=== PATIENT | male | born 1950 | race Caucasian/White ===

== ENCOUNTER 2018-12-07 16:58 | Observation (INO) | payer MEDICARE, OTHER ==
[2018-12-07] MEDS ORDERED: Albuterol/Ipratropium 3.0-0.5 MG/3 ML Neb Soln NEB ONE (17:13)
[2018-12-07] MEDS ORDERED: Sodium Chloride 0.9% 1,000 ML IV ONE (17:13)
--- NOTE | 2018-12-07 17:17 | EDM.PDOC ---
ED HPI GENERAL MEDICAL PROBLEM - General Chief Complaint: Respiratory Problem Stated Complaint: WEAKNESS Time Seen by Provider: 12/07/18 17:00 Source of Information: Reports: Patient History Limitations: Reports: No Limitations - History of Present Illness INITIAL COMMENTS - FREE TEXT/NARRATIVE: HISTORY AND PHYSICAL: History of present illness: Patient is a 68-year-old male who presents to the emergency room with complaints of weakness, shortness of breath and cough. He states for approximately 2 weeks he has had the symptoms that are progressively gotten worse. He has seen Dr. Joel at the [facility] earlier this week and placed on azithromycin. His [id number] who is at the bedside states that when she came over today he could "barely walk because he was so weak" and encouraged him to come be evaluated in the emergency room. He has had subjective fever and chills. Denies any headache, syncope or near syncope. Denies any chest pain, abdominal pain, nausea, vomiting, diarrhea or constipation. States he has been eating and drinking appropriately. No recent fall, trauma or head injury. Past medical history of hypertension, coronary artery disease and cardiac stents. Review of systems: As per history of present illness and below otherwise all systems reviewed and negative. Past medical history: As per history of present illness and as reviewed below otherwise noncontributory. Surgical history: As per history of present illness and as reviewed below otherwise noncontributory. Social history: See social history for further information Family history: As per history of present illness and as reviewed below otherwise noncontributory. Physical exam: General: Well-developed and well-nourished 68-year-old male. Alert and oriented. Nontoxic appearing and in no acute distress. HEENT: Atraumatic, normocephalic, pupils equal and reactive bilaterally, negative for conjunctival pallor or scleral icterus, mucous membranes moist, TMs normal bilaterally, throat clear, neck supple, nontender, trachea midline. No drooling or trismus noted. No meningeal signs. No hot potato voice noted. Lungs: Fine expiratory wheezing noted to the right anterior base, breath sounds equal bilaterally, chest nontender. Dry nonproductive cough noted. Heart: S1S2, regular rate and rhythm without overt murmur Abdomen: Soft, nondistended, nontender. Negative for masses or hepatosplenomegaly. Negative for costovertebral tenderness. Pelvis: Stable nontender. Genitourinary: Deferred. Rectal: Deferred. Skin: Intact, warm, dry. No lesions or rashes noted. Extremities: Atraumatic, negative for cords or calf pain. Neurovascular unremarkable. Neuro: Awake, alert, oriented. Cranial nerves II through XII unremarkable. Cerebellum unremarkable. Motor and sensory unremarkable throughout. Exam nonfocal. Notes: Nursing staff states he is uneasy on his feet when transferred from wheelchair to the bed. He has been on antibiotics for proximally 4-5 days. It does appear that he tested positive for influenza on 12/01/18. He is agreeable to repeat lab work. Patient appears to have a right lower lobe pneumonia. We'll give Rocephin while here. Blood cultures have already been drawn. Discussed admission, patient and family members are agreeable. Dr. Johnston was consulted on this case. He is agreeable to admitting this patient for observation. Dr Mays is here to evaluate patient. Diagnostics: CBC, CMP, troponin, EKG, chest x-ray, head CT, blood cultures Therapeutics: IV fluids, Duo Neb, Rocephin Impression: Right lower lobe pneumonia Weakness History of Influenza Plan: Observation admission to Med/Surg Definitive disposition and diagnosis as appropriate pending reevaluation and review of above. neck Pain Score (Numeric/FACES): 5 - Related Data Allergies Allergy/AdvReac Type Severity Reaction Status Date / Time bee sting Allergy Airway Uncoded 12/07/18 17:13 Tightness Home Meds: Home Meds Aspirin 1 tab PO DAILY 12/07/18 [History] Cholecalciferol (Vitamin D3) [Vitamin D3] 1 tab PO DAILY 12/07/18 [History] Cyanocobalamin (Vitamin B-12) [Cyanocobalamin] 100 mg PO DAILY 12/07/18 [History ] FLUoxetine [PROzac] 20 mg PO DAILY 12/07/18 [History] Meloxicam 15 mg PO DAILY 12/07/18 [History] Metoprolol Succinate [Toprol Xl] 15 mg PO DAILY 12/07/18 [History] Vitamin B Complex [B Complex] 1 tab PO DAILY 12/07/18 [History] buPROPion [Wellbutrin SR] 300 mg PO DAILY 12/07/18 [History] ED ROS GENERAL - Review of Systems Review Of Systems: ROS reveals no pertinent complaints other than HPI. ED EXAM, GENERAL - Physical Exam Exam: See Below (See dictation) Course - Vital Signs Last Recorded V/S: Last Vital Signs Temp 99.3 F 12/07/18 17:57 Pulse 62 12/07/18 17:57 Resp 18 12/07/18 17:57 BP 104/56 L 12/07/18 17:57 Pulse Ox 94 L 12/07/18 17:57 - Orders/Labs/Meds Orders: Active Orders 24 hr Category Date Time Status EKG Documentation Completion [RC] STAT Care 12/07/18 17:13 Active RT Aerosol Therapy [RC] ASDIRECTED Care 12/07/18 17:13 Active Chest 1V Frontal [CR] Stat Exams 12/07/18 17:13 Ordered CULTURE BLOOD [BC] Stat Lab 12/07/18 17:13 Ordered CULTURE BLOOD [BC] Stat Lab 12/07/18 17:51 Received INFLUENZA A+B AG SCREEN [RM] Stat Lab 12/07/18 18:24 Ordered Sodium Chloride 0.9% [Normal Saline] 1,000 ml Med 12/07/18 17:13 Active IV STAT cefTRIAXone [Rocephin in Dextrose,Iso-Osm 1 GM/50 ML] 1 Med 12/07/18 18:10 Active gm Premix Bag 1 bag IV ONETIME Blood Culture x2 Reflex Set [OM.PC] Stat Oth 12/07/18 17:13 Ordered Medication Orders Sodium Chloride (Normal Saline) 1,000 mls @ 125 mls/hr IV STAT ONE Stop: 12/08/18 01:12 Last Admin: 12/07/18 17:38 Dose: 125 mls/hr Ceftriaxone Sodium/Dextrose 1 (gm/ Premix) 50 mls @ 100 mls/hr IV ONETIME ONE Stop: 12/07/18 18:39 Labs: Laboratory Tests 12/07/18 12/07/18 12/07/18 Range/Units 16:14 17:29 17:29 WBC 12.99 H (4.0-11.0) K/uL RBC 4.83 (4.50-5.90) M/uL Hgb 14.3 (13.0-17.0) g/dL Hct 41.2 (38.0-50.0) % MCV 85.3 (80.0-98.0) fL MCH 29.6 (27.0-32.0) pg MCHC 34.7 (31.0-37.0) g/dL RDW Std Deviation 45.3 (28.0-62.0) fl RDW Coeff of Mery 15 (11.0-15.0) % Plt Count 299 (150-400) K/uL MPV 10.00 (7.40-12.00) fL Neut % (Auto) 63.7 (48.0-80.0) % Lymph % (Auto) 21.3 (16.0-40.0) % [place] % (Auto) 14.3 (0.0-15.0) % Eos % (Auto) 0.5 (0.0-7.0) % Baso % (Auto) 0.2 (0.0-1.5) % Neut # (Auto) 8.3 H (1.4-5.7) K/uL Lymph # (Auto) 2.8 H (0.6-2.4) K/uL [place] # (Auto) 1.9 H (0.0-0.8) K/uL Eos # (Auto) 0.1 (0.0-0.7) K/uL Baso # (Auto) 0.0 (0.0-0.1) K/uL Nucleated RBC % 0.0 /100WBC Nucleated RBCs # 0 K/uL Lactate 0.7 (0.20-2.00) mmol/L Sodium 138 (136-148) mmol/L Potassium 4.3 (3.5-5.1) mmol/L Chloride 101 (98-107) mmol/L Carbon Dioxide 24.9 (21.0-32.0) mmol/L BUN 19 H (7.0-18.0) mg/dL Creatinine 1.1 (0.8-1.3) mg/dL Est Cr Clr Drug Dosing 72.05 mL/min Estimated GFR (MDRD) > 60.0 ml/min Glucose 109 H (74-106) mg/dL Calcium 9.7 (8.5-10.1) mg/dL Total Bilirubin 1.3 H (0.2-1.0) mg/dL AST 21 (15-37) IU/L ALT 28 (14-63) IU/L Alkaline Phosphatase 110 (46-116) U/L Troponin I < 0.050 (0.000-0.056) ng/mL Total Protein 7.8 (6.4-8.2) g/dL Albumin 3.7 (3.4-5.0) g/dL Globulin 4.1 H (2.6-4.0) g/dL Albumin/Globulin Ratio 0.9 (0.9-1.6) Meds: Medications Generic Name Dose Route Start Last Admin Trade Name Freq PRN Reason Stop Dose Admin Sodium Chloride 1,000 mls @ 125 mls/hr 12/07/18 17:13 12/07/18 17:38 Normal Saline IV 12/08/18 01:12 125 mls/hr STAT ONE Administration Ceftriaxone Sodium/Dextrose 1 50 mls @ 100 mls/hr 12/07/18 18:10 gm/ Premix IV 12/07/18 18:39 ONETIME ONE Discontinued Medications Generic Name Dose Route Start Last Admin Trade Name Freq PRN Reason Stop Dose Admin Albuterol/Ipratropium 3 ml 12/07/18 17:13 12/07/18 17:39 Duoneb 3.0-0.5 Mg/3 Ml NEB 12/07/18 17:14 3 ml ONETIME ONE Administration Departure - Departure Time of Disposition: 18:40 Disposition: Refer to Observation Clinical Impression: History of influenza, Weakness Pneumonia Qualifiers: Pneumonia type: due to unspecified organism Laterality: right Lung location: lower lobe of lung Qualified Code(s): J18.1 - Lobar pneumonia, unspecified organism - Discharge Information Referrals: Luis F Joel MD [Primary Care Provider] - Forms: ED Department Discharge - My Orders Last 24 Hours: My Active Orders 12/07/18 17:13 EKG Documentation Completion [RC] STAT RT Aerosol Therapy [RC] ASDIRECTED Chest 1V Frontal [CR] Stat CULTURE BLOOD [BC] Stat Sodium Chloride 0.9% [Normal Saline] 1,000 ml IV STAT Blood Culture x2 Reflex Set [OM.PC] Stat 12/07/18 17:51 CULTURE BLOOD [BC] Stat 12/07/18 18:10 cefTRIAXone [Rocephin in Dextrose,Iso-Osm 1 GM/50 ML] 1 gm Premix Bag 1 bag IV ONETIME 12/07/18 18:24 INFLUENZA A+B AG SCREEN [RM] Stat - Assessment/Plan Last 24 Hours: My Active Orders 12/07/18 17:13 EKG Documentation Completion [RC] STAT RT Aerosol Therapy [RC] ASDIRECTED Chest 1V Frontal [CR] Stat CULTURE BLOOD [BC] Stat Sodium Chloride 0.9% [Normal Saline] 1,000 ml IV STAT Blood Culture x2 Reflex Set [OM.PC] Stat 12/07/18 17:51 CULTURE BLOOD [BC] Stat 12/07/18 18:10 cefTRIAXone [Rocephin in Dextrose,Iso-Osm 1 GM/50 ML] 1 gm Premix Bag 1 bag IV ONETIME 12/07/18 18:24 INFLUENZA A+B AG SCREEN [RM] Stat
[2018-12-07 17:55] LABS: CHLORIDE,CL 101 mmol/L (98-107); SODIUM,NA 138 mmol/L (136-148)
[2018-12-07] MEDS ORDERED: cefTRIAXone 1 GM in Premix Bag 1 BAG IV ONE (18:10)
--- NOTE | 2018-12-07 18:53 | CR ---
HISTORY: Shortness of breath. TECHNIQUE: One view of the chest. COMPARISON: 12/01/2018. FINDINGS: There is a right lower lobe infiltrate medially which may relate to pneumonia. Probable postinflammatory changes at the lung apices as before. There is no pneumothorax. No significant effusion. Cardiac size within normal limits. Pacer wire terminates in the right ventricular region as before. IMPRESSION: Right lower lobe infiltrate which may relate to pneumonia. Dictated by Chris Zaidi MD @ 12/07/2018 6:52:05 PM Dictated by: Chris Zaidi MD @ 12/07/2018 18:52:07 (Electronically Signed)
--- NOTE | 2018-12-07 18:54 | PCM.HP ---
H&P History of Present Illness - General Date of Service: 12/07/18 Admit Problem/Dx: Admission Diagnosis/Problem Admission Diagnosis/Problem Pneumonia - History of Present Illness Initial Comments - Free Text/Narative: The patient is a 68 year old male with past medical history of HTN, CAD, and Afib who presented to the ER with weakness, shortness of breath, and productive cough. He reports associated fever/chills, nausea/vomiting, and loss of appetite. He denies chest pain or abdominal pain. He was seen as an outpatient in Dr. Moura's office and diagnosed with influenza, he completed a course of Tamiflu. Then earlier this week returned still not feeling well and was diagnosed with pneumonia. He was started on Azithromycin, he has taken 4 doses. He denies history of asthma, COPD, or CHF. He is not a smoker but chews tobacco. In the ER, work up showed leukocytosis of 13, negative troponin, negative lactate, and pending blood cultures. CXR showed ____. In the ER he was satting above 90% on room air. He received a dose of Rocephin, duoneb and IVF. neck Pain Score (Numeric/FACES): 5 - Related Data Allergies/Adverse Reactions: Allergies Allergy/AdvReac Type Severity Reaction Status Date / Time bee sting Allergy Airway Uncoded 12/07/18 17:13 Tightness Home Medications: Home Meds Aspirin 1 tab PO DAILY 12/07/18 [History] Cholecalciferol (Vitamin D3) [Vitamin D3] 1 tab PO DAILY 12/07/18 [History] Cyanocobalamin (Vitamin B-12) [Cyanocobalamin] 100 mg PO DAILY 12/07/18 [History ] FLUoxetine [PROzac] 20 mg PO DAILY 12/07/18 [History] Meloxicam 15 mg PO DAILY 12/07/18 [History] Metoprolol Succinate [Toprol Xl] 15 mg PO DAILY 12/07/18 [History] Vitamin B Complex [B Complex] 1 tab PO DAILY 12/07/18 [History] buPROPion [Wellbutrin SR] 300 mg PO DAILY 12/07/18 [History] Past Medical History HEENT History: Reports: None Cardiovascular History: Reports: Afib, Hypertension, [place], Pacemaker Respiratory History: Reports: None Gastrointestinal History: Reports: None Genitourinary History: Reports: None Musculoskeletal History: Reports: None Neurological History: Reports: None Psychiatric History: Reports: Depression Endocrine/Metabolic History: Reports: None Hematologic History: Reports: None Immunologic History: Reports: None Oncologic (Cancer) History: Reports: None Dermatologic History: Reports: None - Infectious Disease History Infectious Disease History: Reports: Chicken Pox, Measles - Past Surgical History Head Surgeries/Procedures: Reports: None HEENT Surgical History: Reports: None Cardiovascular Surgical History: Reports: Coronary Artery Stent Respiratory Surgical History: Reports: None GI Surgical History: Reports: None Male Surgical History: Reports: None Endocrine Surgical History: Reports: None Neurological Surgical History: Reports: None Musculoskeletal Surgical History: Reports: Other (See Below) Other Musculoskeletal Surgeries/Procedures:: left knee and hand surgery Oncologic Surgical History: Reports: None Dermatological Surgical History: Reports: None Social & Family History - Family History Family Medical History: Noncontributory - Tobacco Use Smoking Status *Q: Never Smoker Second Hand Smoke Exposure: No - Caffeine Use Caffeine Use: Reports: None - Recreational Drug Use Recreational Drug Use: No H&P Review of Systems - Review of Systems: Review Of Systems: See Below General: Reports: Fever, Chills, Weakness, Decreased Appetite HEENT: Reports: No Symptoms Pulmonary: Reports: Shortness of Breath, Pleuritic Chest Pain, Cough, Sputum Cardiovascular: Denies: Chest Pain, Edema Gastrointestinal: Reports: Nausea, Vomiting. Denies: Abdominal Pain, Diarrhea Musculoskeletal: Reports: No Symptoms Skin: Reports: No Symptoms Psychiatric: Reports: No Symptoms Neurological: Reports: No Symptoms Hematologic/Lymphatic: Reports: No Symptoms Immunologic: Reports: No Symptoms Exam - Exam Exam: See Below - Vital Signs Vital Signs: Last Vital Signs Temp 99.3 F 12/07/18 17:57 Pulse 62 12/07/18 17:57 Resp 18 12/07/18 17:57 BP 104/56 L 12/07/18 17:57 Pulse Ox 94 L 12/07/18 17:57 Weight: 77.111 kg - Exam Quality Assessment: No: Supplemental Oxygen General: Alert, Oriented, Cooperative HEENT: Conjunctiva Clear, EOMI, Posterior Pharynx Clear, Pupils Equal, Pupils Reactive Neck: Supple, Trachea Midline Lungs: Normal Respiratory Effort, Rhonchi (bases bilaterally) Cardiovascular: Regular Rate, Irregular Rhythm GI/Abdominal Exam: Normal Bowel Sounds, Soft, Non-Tender, No Distention Extremities: No Pedal Edema Skin: Warm, Dry Neurological: Cranial Nerves Intact Neuro Extensive - Mental Status: Alert, Oriented x3 Psychiatric: Alert, Normal Affect, Normal Mood - Patient Data Lab Results Last 24 hrs: Laboratory Results - last 24 hr 12/07/18 12/07/18 12/07/18 Range/Units 16:14 17:29 17:29 WBC 12.99 H (4.0-11.0) K/uL RBC 4.83 (4.50-5.90) M/uL Hgb 14.3 (13.0-17.0) g/dL Hct 41.2 (38.0-50.0) % MCV 85.3 (80.0-98.0) fL MCH 29.6 (27.0-32.0) pg MCHC 34.7 (31.0-37.0) g/dL RDW Std Deviation 45.3 (28.0-62.0) fl RDW Coeff of Mery 15 (11.0-15.0) % Plt Count 299 (150-400) K/uL MPV 10.00 (7.40-12.00) fL Neut % (Auto) 63.7 (48.0-80.0) % Lymph % (Auto) 21.3 (16.0-40.0) % [place] % (Auto) 14.3 (0.0-15.0) % Eos % (Auto) 0.5 (0.0-7.0) % Baso % (Auto) 0.2 (0.0-1.5) % Neut # (Auto) 8.3 H (1.4-5.7) K/uL Lymph # (Auto) 2.8 H (0.6-2.4) K/uL [place] # (Auto) 1.9 H (0.0-0.8) K/uL Eos # (Auto) 0.1 (0.0-0.7) K/uL Baso # (Auto) 0.0 (0.0-0.1) K/uL Nucleated RBC % 0.0 /100WBC Nucleated RBCs # 0 K/uL Lactate 0.7 (0.20-2.00) mmol/L Sodium 138 (136-148) mmol/L Potassium 4.3 (3.5-5.1) mmol/L Chloride 101 (98-107) mmol/L Carbon Dioxide 24.9 (21.0-32.0) mmol/L BUN 19 H (7.0-18.0) mg/dL Creatinine 1.1 (0.8-1.3) mg/dL Est Cr Clr Drug Dosing 72.05 mL/min Estimated GFR (MDRD) > 60.0 ml/min Glucose 109 H (74-106) mg/dL Calcium 9.7 (8.5-10.1) mg/dL Total Bilirubin 1.3 H (0.2-1.0) mg/dL AST 21 (15-37) IU/L ALT 28 (14-63) IU/L Alkaline Phosphatase 110 (46-116) U/L Troponin I < 0.050 (0.000-0.056) ng/mL Total Protein 7.8 (6.4-8.2) g/dL Albumin 3.7 (3.4-5.0) g/dL Globulin 4.1 H (2.6-4.0) g/dL Albumin/Globulin Ratio 0.9 (0.9-1.6) Result Diagrams: 12/07/18 17:29 12/07/18 17:29 - Problem List (1) Failure of outpatient treatment SNOMED Code(s): 635873274 ICD Code: Z78.9 - OTHER SPECIFIED HEALTH STATUS Status: Acute Current Visit: Yes (2) Afib SNOMED Code(s): 65451156 ICD Code: I48.91 - UNSPECIFIED ATRIAL FIBRILLATION Status: Chronic Current Visit: Yes (3) HTN (hypertension) SNOMED Code(s): 82488894 ICD Code: I10 - ESSENTIAL (PRIMARY) HYPERTENSION Status: Chronic Current Visit: Yes (4) CAD (coronary artery disease) SNOMED Code(s): 53055093 ICD Code: I25.10 - ATHSCL HEART DISEASE OF [place] CORONARY ARTERY W/O ANG PCTRS Status: Chronic Current Visit: Yes (5) History of influenza SNOMED Code(s): 162099289 ICD Code: Z87.09 - PERSONAL HISTORY OF OTHER DISEASES OF THE RESPIRATORY SYSTEM Status: Acute Current Visit: Yes (6) Pneumonia SNOMED Code(s): 986947827 ICD Code: J18.9 - PNEUMONIA, UNSPECIFIED ORGANISM Status: Acute Current Visit: Yes Qualifiers: Pneumonia type: due to unspecified organism Laterality: right Lung location: lower lobe of lung Qualified Code(s): J18.1 - Lobar pneumonia, unspecified organism Problem List Initiated/Reviewed/Updated: Yes Orders Last 24hrs: Active Orders 24 hr Category Date Time Status Admission Status [Patient Status] [ADT] Stat ADT 12/07/18 18:42 Active EKG Documentation Completion [RC] STAT Care 12/07/18 17:13 Active RT Aerosol Therapy [RC] ASDIRECTED Care 12/07/18 17:13 Active Chest 1V Frontal [CR] Stat Exams 12/07/18 17:13 Taken CULTURE BLOOD [BC] Stat Lab 12/07/18 17:13 Ordered CULTURE BLOOD [BC] Stat Lab 12/07/18 17:51 Received Sodium Chloride 0.9% [Normal Saline] 1,000 ml Med 12/07/18 17:13 Active IV STAT Blood Culture x2 Reflex Set [OM.PC] Stat Oth 12/07/18 17:13 Ordered Medication Orders Sodium Chloride (Normal Saline) 1,000 mls @ 125 mls/hr IV STAT ONE Stop: 12/08/18 01:12 Last Admin: 12/07/18 17:38 Dose: 125 mls/hr Assessment/Plan Comment:: 1. Admit observation 2. Code status- full 3. Vitals per routine 4. I/Os per routine 5. Diet- heart healthy 6. DVT prophylaxis with Lovenox 7. Community acquired pneumonia-failed outpatient treatment with history of recent influenza- will start on Levaquin, duonebs, and Mucinex. Encourage incentive spirometry 8. Nausea/vomiting- zofran prn 9. Hx of Afib, CAD, HTN- continue home meds and monitor on tele
[2018-12-07] MEDS ORDERED: Ondansetron 4 MG/2 ML SDV IVPUSH PRN (19:02)
[2018-12-07] MEDS ORDERED: Albuterol/Ipratropium 3.0-0.5 MG/3 ML Neb Soln NEB PRN (19:02)
[2018-12-07] MEDS: Levofloxacin/Dextrose 5%-Water 750 MG in Premix Bag 1 BAG IV SCH (20:33)
[2018-12-07] MEDS: Enoxaparin 40 MG/0.4 ML Syringe SUBCUT SCH (20:39)
[2018-12-07] MEDS: guaiFENesin 600 MG Tab.ER PO SCH (21:42)
[2018-12-08 05:20] LABS: CHLORIDE,CL 104 mmol/L (98-107); SODIUM,NA 140 mmol/L (136-148)
[2018-12-08] MEDS: guaiFENesin 600 MG Tab.ER PO SCH ×3 (05:34→21:28)
--- NOTE | 2018-12-08 08:30 | PCM.PN ---
<Betsy Rock - Last Filed: 12/08/18 08:26> - General Info Date of Service: 12/08/18 Subjective Update: The patient is a 68 year old male admitted for CAP who failed outpatient treatment. He reports he feels a little better compared to yesterday. He reports his weakness is improved. He still has the feeling of shortness of breath and cough. He denies chest pain or abdominal pain. He reports he doesn' t have an appetite but he is drinking. - Review of Systems General: Reports: Weakness HEENT: Reports: No Symptoms Pulmonary: Reports: Shortness of Breath, Cough Cardiovascular: Reports: No Symptoms Gastrointestinal: Reports: Decreased Appetite. Denies: Abdominal Pain, Nausea, Vomiting Genitourinary: Reports: No Symptoms Musculoskeletal: Reports: No Symptoms Skin: Reports: No Symptoms Neurological: Reports: No Symptoms Psychiatric: Reports: No Symptoms - Patient Data Vitals - Most Recent: Last Vital Signs Temp 98.4 F 12/08/18 04:00 Pulse 62 12/08/18 04:00 Resp 18 12/08/18 04:00 BP 109/58 L 12/08/18 04:00 Pulse Ox 94 L 12/08/18 04:00 Weight - Most Recent: 83.915 kg I&O - Last 24 Hours: Intake & Output 12/07/18 12/08/18 12/08/18 22:59 06:59 14:59 Intake Total 150 500 Output Total 500 Balance 150 0 Lab Results Last 24 Hours: Laboratory Results - last 24 hr 12/07/18 12/07/18 12/07/18 Range/Units 16:14 17:29 17:29 WBC 12.99 H (4.0-11.0) K/uL RBC 4.83 (4.50-5.90) M/uL Hgb 14.3 (13.0-17.0) g/dL Hct 41.2 (38.0-50.0) % MCV 85.3 (80.0-98.0) fL MCH 29.6 (27.0-32.0) pg MCHC 34.7 (31.0-37.0) g/dL RDW Std Deviation 45.3 (28.0-62.0) fl RDW Coeff of Mery 15 (11.0-15.0) % Plt Count 299 (150-400) K/uL MPV 10.00 (7.40-12.00) fL Neut % (Auto) 63.7 (48.0-80.0) % Lymph % (Auto) 21.3 (16.0-40.0) % [place] % (Auto) 14.3 (0.0-15.0) % Eos % (Auto) 0.5 (0.0-7.0) % Baso % (Auto) 0.2 (0.0-1.5) % Neut # (Auto) 8.3 H (1.4-5.7) K/uL Lymph # (Auto) 2.8 H (0.6-2.4) K/uL [place] # (Auto) 1.9 H (0.0-0.8) K/uL Eos # (Auto) 0.1 (0.0-0.7) K/uL Baso # (Auto) 0.0 (0.0-0.1) K/uL Add Manual Diff Neutrophils % (Manual) (48.0-80.0) % Band Neutrophils % % Lymphocytes % (Manual) (16.0-40.0) % Monocytes % (Manual) (0.0-15.0) % Eosinophils % (Manual) (0.0-7.0) % Basophils % (Manual) (0.0-1.5) % Nucleated RBC % 0.0 /100WBC Absolute Seg Neuts (1.4-5.7) Band Neutrophils # Lymphocytes # (Manual) (0.6-2.4) Monocytes # (Manual) (0.0-0.8) Eosinophils # (Manual) (0.0-0.7) Basophils # (Manual) (0.0-0.1) Nucleated RBCs # 0 K/uL Lactate 0.7 (0.20-2.00) mmol/L Sodium 138 (136-148) mmol/L Potassium 4.3 (3.5-5.1) mmol/L Chloride 101 (98-107) mmol/L Carbon Dioxide 24.9 (21.0-32.0) mmol/L BUN 19 H (7.0-18.0) mg/dL Creatinine 1.1 (0.8-1.3) mg/dL Est Cr Clr Drug Dosing 72.05 mL/min Estimated GFR (MDRD) > 60.0 ml/min Glucose 109 H (74-106) mg/dL Calcium 9.7 (8.5-10.1) mg/dL Total Bilirubin 1.3 H (0.2-1.0) mg/dL AST 21 (15-37) IU/L ALT 28 (14-63) IU/L Alkaline Phosphatase 110 (46-116) U/L Troponin I < 0.050 (0.000-0.056) ng/mL Total Protein 7.8 (6.4-8.2) g/dL Albumin 3.7 (3.4-5.0) g/dL Globulin 4.1 H (2.6-4.0) g/dL Albumin/Globulin Ratio 0.9 (0.9-1.6) 12/08/18 12/08/18 Range/Units 04:35 04:35 WBC 12.05 H (4.0-11.0) K/uL RBC 4.48 L (4.50-5.90) M/uL Hgb 13.0 (13.0-17.0) g/dL Hct 38.6 (38.0-50.0) % MCV 86.2 (80.0-98.0) fL MCH 29.0 (27.0-32.0) pg MCHC 33.7 (31.0-37.0) g/dL RDW Std Deviation 46.6 (28.0-62.0) fl RDW Coeff of Mery 15 (11.0-15.0) % Plt Count 294 (150-400) K/uL MPV 10.20 (7.40-12.00) fL Neut % (Auto) (48.0-80.0) % Lymph % (Auto) (16.0-40.0) % [place] % (Auto) (0.0-15.0) % Eos % (Auto) (0.0-7.0) % Baso % (Auto) (0.0-1.5) % Neut # (Auto) (1.4-5.7) K/uL Lymph # (Auto) (0.6-2.4) K/uL [place] # (Auto) (0.0-0.8) K/uL Eos # (Auto) (0.0-0.7) K/uL Baso # (Auto) (0.0-0.1) K/uL Add Manual Diff YES Neutrophils % (Manual) 43 L (48.0-80.0) % Band Neutrophils % 3 % Lymphocytes % (Manual) 39 (16.0-40.0) % Monocytes % (Manual) 13 (0.0-15.0) % Eosinophils % (Manual) 1 (0.0-7.0) % Basophils % (Manual) 1 (0.0-1.5) % Nucleated RBC % 0.0 /100WBC Absolute Seg Neuts 5.2 (1.4-5.7) Band Neutrophils # 0.4 Lymphocytes # (Manual) 4.7 H (0.6-2.4) Monocytes # (Manual) 1.6 H (0.0-0.8) Eosinophils # (Manual) 0.1 (0.0-0.7) Basophils # (Manual) 0.1 (0.0-0.1) Nucleated RBCs # 0 K/uL Lactate (0.20-2.00) mmol/L Sodium 140 (136-148) mmol/L Potassium 3.8 (3.5-5.1) mmol/L Chloride 104 (98-107) mmol/L Carbon Dioxide 25.1 (21.0-32.0) mmol/L BUN 17 (7.0-18.0) mg/dL Creatinine 1.0 (0.8-1.3) mg/dL Est Cr Clr Drug Dosing 86.25 mL/min Estimated GFR (MDRD) > 60.0 ml/min Glucose 97 (74-106) mg/dL Calcium 9.0 (8.5-10.1) mg/dL Total Bilirubin (0.2-1.0) mg/dL AST (15-37) IU/L ALT (14-63) IU/L Alkaline Phosphatase (46-116) U/L Troponin I (0.000-0.056) ng/mL Total Protein (6.4-8.2) g/dL Albumin (3.4-5.0) g/dL Globulin (2.6-4.0) g/dL Albumin/Globulin Ratio (0.9-1.6) Med Orders - Current: Current Medications Acetaminophen (Tylenol) 650 mg PO Q4H PRN PRN Reason: Pain/Fever Albuterol/Ipratropium (Duoneb 3.0-0.5 Mg/3 Ml) 3 ml NEB Q4HRRT PRN PRN Reason: Shortness of Breath Aspirin (Aspirin) 81 mg PO DAILY [facility] Bupropion HCl (Wellbutrin Sr) 300 mg PO DAILY [facility] Enoxaparin Sodium (Lovenox) 40 mg SUBCUT Q24H [facility] Last Admin: 12/07/18 20:39 Dose: 40 mg Fluoxetine HCl (Prozac) 20 mg PO DAILY [facility] Guaifenesin (Mucinex) 600 mg PO TID [facility] Last Admin: 12/08/18 05:34 Dose: 600 mg Levofloxacin/Dextrose 750 mg/ (Premix) 150 mls @ 100 mls/hr IV Q24H [facility] Last Admin: 12/07/18 20:33 Dose: 100 mls/hr Metoprolol Succinate (Toprol Xl) 15 mg PO DAILY [facility] Non-Formulary Medication (Cholecalciferol (Vitamin D3) [Vitamin D3]) 1 tab PO DAILY [facility] Non-Formulary Medication (Cyanocobalamin (Vitamin B-12) [Cyanocobalamin]) 100 mg PO DAILY [facility] Non-Formulary Medication (Meloxicam) 15 mg PO DAILY [facility] Non-Formulary Medication (Vitamin B Complex) 1 tab PO DAILY [facility] Ondansetron HCl (Zofran) 4 mg IVPUSH Q4H PRN PRN Reason: Nausea/Vomiting Discontinued Medications Albuterol/Ipratropium (Duoneb 3.0-0.5 Mg/3 Ml) 3 ml NEB ONETIME ONE Stop: 12/07/18 17:14 Last Admin: 12/07/18 17:39 Dose: 3 ml Sodium Chloride (Normal Saline) 1,000 mls @ 125 mls/hr IV STAT ONE Stop: 12/08/18 01:12 Last Admin: 12/07/18 17:38 Dose: 125 mls/hr Ceftriaxone Sodium/Dextrose 1 (gm/ Premix) 50 mls @ 100 mls/hr IV ONETIME ONE Stop: 12/07/18 18:39 Last Admin: 12/07/18 18:53 Dose: 100 mls/hr - Exam Quality Assessment: No: Supplemental Oxygen General: Alert, Oriented, Cooperative Neck: Supple Lungs: Normal Respiratory Effort, Rhonchi (bases) Cardiovascular: Regular Rate, Regular Rhythm GI/Abdominal Exam: Normal Bowel Sounds, Soft, Non-Tender, No Distention Extremities: No Pedal Edema Skin: Warm, Dry Neurological: No New Focal Deficit Psy/Mental Status: Alert, Normal Affect, Normal Mood - Problem List & Annotations (1) Failure of outpatient treatment SNOMED Code(s): 364229613 Code(s): Z78.9 - OTHER SPECIFIED HEALTH STATUS Status: Acute Current Visit: Yes (2) Afib SNOMED Code(s): 52650640 Code(s): I48.91 - UNSPECIFIED ATRIAL FIBRILLATION Status: Chronic Current Visit: Yes (3) HTN (hypertension) SNOMED Code(s): 48477044 Code(s): I10 - ESSENTIAL (PRIMARY) HYPERTENSION Status: Chronic Current Visit: Yes (4) CAD (coronary artery disease) SNOMED Code(s): 27410430 Code(s): I25.10 - ATHSCL HEART DISEASE OF [place] CORONARY ARTERY W/O ANG PCTRS Status: Chronic Current Visit: Yes (5) History of influenza SNOMED Code(s): 707195071 Code(s): Z87.09 - PERSONAL HISTORY OF OTHER DISEASES OF THE RESPIRATORY SYSTEM Status: Acute Current Visit: Yes (6) Pneumonia SNOMED Code(s): 399281404 Code(s): J18.9 - PNEUMONIA, UNSPECIFIED ORGANISM Status: Acute Current Visit: Yes Qualifiers: Pneumonia type: due to unspecified organism Laterality: right Lung location: lower lobe of lung Qualified Code(s): J18.1 - Lobar pneumonia, unspecified organism - Problem List Review Problem List Initiated/Reviewed/Updated: Yes - My Orders Last 24 Hours: My Active Orders 12/07/18 19:02 Cardiac Monitoring [RC] Q8HR Intake and Output [RC] Q12H RT Incentive Spirometry [RC] ASDIRECTED Vital Signs [RC] Q4H Acetaminophen [Tylenol] 650 mg PO Q4H PRN Albuterol/Ipratropium [DuoNeb 3.0-0.5 MG/3 ML] 3 ml NEB Q4HRRT PRN Ondansetron [Zofran] 4 mg IVPUSH Q4H PRN 12/07/18 19:03 RT Aerosol Therapy [RC] ASDIRECTED 12/07/18 19:04 Code Status [Resuscitation Status] Stat 12/07/18 19:15 Enoxaparin [Lovenox] 40 mg SUBCUT Q24H Levofloxacin/Dextrose 5%-Water [Levaquin in D5W 750 MG/150 ML] 750 mg Premix Bag 1 bag IV Q24H 12/07/18 22:00 guaiFENesin [Mucinex] 600 mg PO TID 12/08/18 09:00 Aspirin 81 mg PO DAILY Cholecalciferol (Vitamin D3) [Vitamin D3] 1 tab PO DAILY Cyanocobalamin (Vitamin B-12) [Cyanocobalamin] 100 mg PO DAILY FLUoxetine [PROzac] 20 mg PO DAILY Meloxicam 15 mg PO DAILY Metoprolol Succinate [Toprol XL] 15 mg PO DAILY Vitamin B Complex 1 tab PO DAILY buPROPion [Wellbutrin SR] 300 mg PO DAILY 12/08/18 Breakfast Heart Healthy Diet [DIET] - Plan Plan:: 1. Community acquired pneumonia-failed outpatient treatment with history of recent influenza- white count improving, continue Levaquin, duonebs, and Mucinex. Encourage incentive spirometry 2. Nausea/vomiting- improved, continue zofran prn 3. Hx of Afib, CAD, HTN- continue home meds and monitor on tele <Ovidio Johnston - Last Filed: 12/08/18 09:14> - General Info Subjective Update: I have examined the patient independently of Betsy Rock MD, resident. I have discussed the case with her. I have reviewed and agree with the plan of care as outlined by her. Please see orders. - Patient Data Vitals - Most Recent: Last Vital Signs Temp 36.9 C 12/08/18 04:00 Pulse 62 12/08/18 04:00 Resp 18 12/08/18 04:00 BP 109/58 L 12/08/18 04:00 Pulse Ox 94 L 12/08/18 04:00 I&O - Last 24 Hours: Intake & Output 12/07/18 12/08/18 12/08/18 22:59 06:59 14:59 Intake Total 150 500 Output Total 500 Balance 150 0 Lab Results Last 24 Hours: Laboratory Results - last 24 hr 12/07/18 12/07/18 12/07/18 Range/Units 16:14 17:29 17:29 WBC 12.99 H (4.0-11.0) K/uL RBC 4.83 (4.50-5.90) M/uL Hgb 14.3 (13.0-17.0) g/dL Hct 41.2 (38.0-50.0) % MCV 85.3 (80.0-98.0) fL MCH 29.6 (27.0-32.0) pg MCHC 34.7 (31.0-37.0) g/dL RDW Std Deviation 45.3 (28.0-62.0) fl RDW Coeff of Mery 15 (11.0-15.0) % Plt Count 299 (150-400) K/uL MPV 10.00 (7.40-12.00) fL Neut % (Auto) 63.7 (48.0-80.0) % Lymph % (Auto) 21.3 (16.0-40.0) % [place] % (Auto) 14.3 (0.0-15.0) % Eos % (Auto) 0.5 (0.0-7.0) % Baso % (Auto) 0.2 (0.0-1.5) % Neut # (Auto) 8.3 H (1.4-5.7) K/uL Lymph # (Auto) 2.8 H (0.6-2.4) K/uL [place] # (Auto) 1.9 H (0.0-0.8) K/uL Eos # (Auto) 0.1 (0.0-0.7) K/uL Baso # (Auto) 0.0 (0.0-0.1) K/uL Add Manual Diff Neutrophils % (Manual) (48.0-80.0) % Band Neutrophils % % Lymphocytes % (Manual) (16.0-40.0) % Monocytes % (Manual) (0.0-15.0) % Eosinophils % (Manual) (0.0-7.0) % Basophils % (Manual) (0.0-1.5) % Nucleated RBC % 0.0 /100WBC Absolute Seg Neuts (1.4-5.7) Band Neutrophils # Lymphocytes # (Manual) (0.6-2.4) Monocytes # (Manual) (0.0-0.8) Eosinophils # (Manual) (0.0-0.7) Basophils # (Manual) (0.0-0.1) Nucleated RBCs # 0 K/uL Lactate 0.7 (0.20-2.00) mmol/L Sodium 138 (136-148) mmol/L Potassium 4.3 (3.5-5.1) mmol/L Chloride 101 (98-107) mmol/L Carbon Dioxide 24.9 (21.0-32.0) mmol/L BUN 19 H (7.0-18.0) mg/dL Creatinine 1.1 (0.8-1.3) mg/dL Est Cr Clr Drug Dosing 72.05 mL/min Estimated GFR (MDRD) > 60.0 ml/min Glucose 109 H (74-106) mg/dL Calcium 9.7 (8.5-10.1) mg/dL Total Bilirubin 1.3 H (0.2-1.0) mg/dL AST 21 (15-37) IU/L ALT 28 (14-63) IU/L Alkaline Phosphatase 110 (46-116) U/L Troponin I < 0.050 (0.000-0.056) ng/mL Total Protein 7.8 (6.4-8.2) g/dL Albumin 3.7 (3.4-5.0) g/dL Globulin 4.1 H (2.6-4.0) g/dL Albumin/Globulin Ratio 0.9 (0.9-1.6) 12/08/18 12/08/18 Range/Units 04:35 04:35 WBC 12.05 H (4.0-11.0) K/uL RBC 4.48 L (4.50-5.90) M/uL Hgb 13.0 (13.0-17.0) g/dL Hct 38.6 (38.0-50.0) % MCV 86.2 (80.0-98.0) fL MCH 29.0 (27.0-32.0) pg MCHC 33.7 (31.0-37.0) g/dL RDW Std Deviation 46.6 (28.0-62.0) fl RDW Coeff of Mery 15 (11.0-15.0) % Plt Count 294 (150-400) K/uL MPV 10.20 (7.40-12.00) fL Neut % (Auto) (48.0-80.0) % Lymph % (Auto) (16.0-40.0) % [place] % (Auto) (0.0-15.0) % Eos % (Auto) (0.0-7.0) % Baso % (Auto) (0.0-1.5) % Neut # (Auto) (1.4-5.7) K/uL Lymph # (Auto) (0.6-2.4) K/uL [place] # (Auto) (0.0-0.8) K/uL Eos # (Auto) (0.0-0.7) K/uL Baso # (Auto) (0.0-0.1) K/uL Add Manual Diff YES Neutrophils % (Manual) 43 L (48.0-80.0) % Band Neutrophils % 3 % Lymphocytes % (Manual) 39 (16.0-40.0) % Monocytes % (Manual) 13 (0.0-15.0) % Eosinophils % (Manual) 1 (0.0-7.0) % Basophils % (Manual) 1 (0.0-1.5) % Nucleated RBC % 0.0 /100WBC Absolute Seg Neuts 5.2 (1.4-5.7) Band Neutrophils # 0.4 Lymphocytes # (Manual) 4.7 H (0.6-2.4) Monocytes # (Manual) 1.6 H (0.0-0.8) Eosinophils # (Manual) 0.1 (0.0-0.7) Basophils # (Manual) 0.1 (0.0-0.1) Nucleated RBCs # 0 K/uL Lactate (0.20-2.00) mmol/L Sodium 140 (136-148) mmol/L Potassium 3.8 (3.5-5.1) mmol/L Chloride 104 (98-107) mmol/L Carbon Dioxide 25.1 (21.0-32.0) mmol/L BUN 17 (7.0-18.0) mg/dL Creatinine 1.0 (0.8-1.3) mg/dL Est Cr Clr Drug Dosing 86.25 mL/min Estimated GFR (MDRD) > 60.0 ml/min Glucose 97 (74-106) mg/dL Calcium 9.0 (8.5-10.1) mg/dL Total Bilirubin (0.2-1.0) mg/dL AST (15-37) IU/L ALT (14-63) IU/L Alkaline Phosphatase (46-116) U/L Troponin I (0.000-0.056) ng/mL Total Protein (6.4-8.2) g/dL Albumin (3.4-5.0) g/dL Globulin (2.6-4.0) g/dL Albumin/Globulin Ratio (0.9-1.6) Med Orders - Current: Current Medications Acetaminophen (Tylenol) 650 mg PO Q4H PRN PRN Reason: Pain/Fever Albuterol/Ipratropium (Duoneb 3.0-0.5 Mg/3 Ml) 3 ml NEB Q4HRRT PRN PRN Reason: Shortness of Breath Aspirin (Aspirin) 81 mg PO DAILY [facility] Bupropion HCl (Wellbutrin Sr) 300 mg PO DAILY [facility] Enoxaparin Sodium (Lovenox) 40 mg SUBCUT Q24H [facility] Last Admin: 12/07/18 20:39 Dose: 40 mg Fluoxetine HCl (Prozac) 20 mg PO DAILY [facility] Guaifenesin (Mucinex) 600 mg PO TID [facility] Last Admin: 12/08/18 05:34 Dose: 600 mg Levofloxacin/Dextrose 750 mg/ (Premix) 150 mls @ 100 mls/hr IV Q24H [facility] Last Admin: 12/07/18 20:33 Dose: 100 mls/hr Metoprolol Succinate (Toprol Xl) 15 mg PO DAILY [facility] Non-Formulary Medication (Cholecalciferol (Vitamin D3) [Vitamin D3]) 1 tab PO DAILY [facility] Non-Formulary Medication (Cyanocobalamin (Vitamin B-12) [Cyanocobalamin]) 100 mg PO DAILY [facility] Non-Formulary Medication (Meloxicam) 15 mg PO DAILY [facility] Non-Formulary Medication (Vitamin B Complex) 1 tab PO DAILY [facility] Ondansetron HCl (Zofran) 4 mg IVPUSH Q4H PRN PRN Reason: Nausea/Vomiting Discontinued Medications Albuterol/Ipratropium (Duoneb 3.0-0.5 Mg/3 Ml) 3 ml NEB ONETIME ONE Stop: 12/07/18 17:14 Last Admin: 12/07/18 17:39 Dose: 3 ml Sodium Chloride (Normal Saline) 1,000 mls @ 125 mls/hr IV STAT ONE Stop: 12/08/18 01:12 Last Admin: 12/07/18 17:38 Dose: 125 mls/hr Ceftriaxone Sodium/Dextrose 1 (gm/ Premix) 50 mls @ 100 mls/hr IV ONETIME ONE Stop: 12/07/18 18:39 Last Admin: 12/07/18 18:53 Dose: 100 mls/hr - My Orders Last 24 Hours: My Active Orders 12/07/18 19:02 Telemetry Monitoring [Cardiac Monitoring] [RC] . DIRECTED
[2018-12-08] MEDS ORDERED: VITAMIN B COMPLEX PO SCH (09:00)
[2018-12-08] MEDS ORDERED: Non-Formulary Medication 1 Each (Meloxicam 15 MG) PO SCH (09:00)
[2018-12-08] MEDS ORDERED: Non-Formulary Medication 1 Each (Cholecalciferol (Vitamin D3) [Vitamin D3] 1 TAB) PO SCH (09:00)
[2018-12-08] MEDS ORDERED: CYANOCOBALAMIN 100 MG PO SCH (09:00)
[2018-12-08] MEDS ORDERED: Metoprolol Succinate 25 MG Tab.ER PO SCH (09:00)
[2018-12-08] MEDS: Cholecalciferol (Vitamin D3) 1,000 Unit Tab PO SCH (10:27)
[2018-12-08] MEDS: Aspirin 81 MG Tab.Chew PO SCH (10:27)
[2018-12-08] MEDS: Meloxicam 7.5 MG Tab PO SCH (10:27)
[2018-12-08] MEDS: Metoprolol Succinate 25 MG Tab.ER PO SCH (10:29)
[2018-12-08] MEDS: buPROPion 150 MG Tab.SR PO SCH (10:33)
[2018-12-08] MEDS: FLUoxetine Solution 20 MG/5 ML ML 120 ML Bottle PO SCH (11:35)
[2018-12-08] MEDS: Benzonatate 100 MG Cap PO SCH ×2 (14:30→21:27)
[2018-12-08] MEDS: Acetaminophen 325 MG Tab PO PRN ×2 (15:48→21:27)
[2018-12-08] MEDS: Enoxaparin 40 MG/0.4 ML Syringe SUBCUT SCH (18:49)
[2018-12-08] MEDS: Levofloxacin/Dextrose 5%-Water 750 MG in Premix Bag 1 BAG IV SCH (18:50)
[2018-12-09] MEDS: guaiFENesin 600 MG Tab.ER PO SCH (05:26)
[2018-12-09] MEDS: Benzonatate 100 MG Cap PO SCH (05:26)
[2018-12-09 06:37] LABS: CHLORIDE,CL 103 mmol/L (98-107); SODIUM,NA 140 mmol/L (136-148)
--- NOTE | 2018-12-09 08:27 | PCM.DCSUM1 ---
<Betsy Rock - Last Filed: 12/09/18 08:47> Discharge Summary - Hospital Course HPI Initial Comments: Admission Date: 12/07/18 Discharge Date: 12/09/18 Admission Diagnosis: 1. Community acquired pneumonia- failed outpatient treatment 2. Nausea/vomiting 3. Chronic conditions- Afib, CAD, HTN Discharge Diagnosis: 1. Community acquired pneumonia- failed outpatient treatment 2. Nausea/vomiting-resolved 3. Chronic conditions- Afib, CAD, HTN Procedures: None Consults: None Hospital Course: The patient is a 68 year old male who presented to the ER feeling short of breath and weak. He was diagnosed with influenza as an outpatinet on 12/01/18 and treated with Tamiflu, then developed pneumonia the next week. He was treated with Azithroymcin but was getting worse and decided to come in. Work up found leukocytosis and RLL pneumonia on CXR. He was admitted to the medical surgical floor for observation. He never required oxygen supplementation. He was treated with IV Levaquin and duonebs. He had zofran available for nausea vomiting. By day of discharge his nausea/vomiting had resolved, he was feeling much stronger, and no longer felt short of breath. His white count was trended and trended down. He was ambulating and tolerating an oral diet. He was continued on his home medications for his chronic condtions. By day of discharge the patient felt ready to go home. Disposition: Home Discharge Condition: vitals stable, tolerating oral diet, ambulating without difficulty, symptom improvement Discharge Instructions: usual diet as tolerated, activity as tolerated, take medications as prescribed, continue to use the incentive spirometer. Symptoms to report to physician include fever/chills, chest pain, shortness of breath, abdominal pain, nausea/vomiting, discharge, drainage, erythema, or not improving as expected. Discharge Medications: Aspirin 1 tab PO DAILY Cholecalciferol (Vitamin D3) [Vitamin D3] 1 tab PO DAILY Cyanocobalamin (Vitamin B-12) [Cyanocobalamin] 100 mg PO DAILY Meloxicam 15 mg PO DAILY Metoprolol Succinate [Toprol Xl] 15 mg PO DAILY Vitamin B Complex [B Complex] 1 tab PO DAILY buPROPion [Wellbutrin SR] 300 mg PO DAILY FLUoxetine [PROzac] 20 mg PO DAILY Levofloxacin [Levaquin] 750 mg PO DAILY 5 Days Follow-up: PCP- Dr. Moura on 12/18/18 Diagnosis: Stroke: No - Discharge Data Discharge Date: 12/09/18 Discharge Disposition: Home, Self-Care 01 Condition: Stable - Discharge Diagnosis/Problem(s) (1) Failure of outpatient treatment SNOMED Code(s): 825701043 ICD Code: Z78.9 - OTHER SPECIFIED HEALTH STATUS Status: Acute Current Visit: Yes (2) Afib SNOMED Code(s): 14701754 ICD Code: I48.91 - UNSPECIFIED ATRIAL FIBRILLATION Status: Chronic Current Visit: Yes (3) HTN (hypertension) SNOMED Code(s): 61016579 ICD Code: I10 - ESSENTIAL (PRIMARY) HYPERTENSION Status: Chronic Current Visit: Yes (4) CAD (coronary artery disease) SNOMED Code(s): 08339886 ICD Code: I25.10 - ATHSCL HEART DISEASE OF [place] CORONARY ARTERY W/O ANG PCTRS Status: Chronic Current Visit: Yes (5) History of influenza SNOMED Code(s): 304756353 ICD Code: Z87.09 - PERSONAL HISTORY OF OTHER DISEASES OF THE RESPIRATORY SYSTEM Status: Acute Current Visit: Yes (6) Pneumonia SNOMED Code(s): 229699614 ICD Code: J18.9 - PNEUMONIA, UNSPECIFIED ORGANISM Status: Acute Current Visit: Yes Qualifiers: Pneumonia type: due to unspecified organism Laterality: right Lung location: lower lobe of lung Qualified Code(s): J18.1 - Lobar pneumonia, unspecified organism - Patient Instructions Diet: Usual Diet as Tolerated Activity: As Tolerated Driving: May Drive Today Showering/Bathing: May Shower Notify Provider of: Fever, Increased Pain, Swelling and Redness, Drainage, Nausea and/or Vomiting Other/Special Instructions: Additional symptoms include chest pain, shortness of breath, or abdominal pain. Continue to use the incentive spirometer at home. - Discharge Plan *PRESCRIPTION DRUG MONITORING PROGRAM REVIEWED*: No *COPY OF PRESCRIPTION DRUG MONITORING REPORT IN PATIENT KINDRA: No Prescriptions/Med Rec: Levofloxacin [Levaquin] 750 mg PO DAILY 5 Days #5 tablet Home Medications: Home Meds Aspirin 1 tab PO DAILY 12/07/18 [History] Cholecalciferol (Vitamin D3) [Vitamin D3] 1 tab PO DAILY 12/07/18 [History] Cyanocobalamin (Vitamin B-12) [Cyanocobalamin] 100 mg PO DAILY 12/07/18 [History ] Meloxicam 15 mg PO DAILY 12/07/18 [History] Metoprolol Succinate [Toprol Xl] 15 mg PO DAILY 12/07/18 [History] Vitamin B Complex [B Complex] 1 tab PO DAILY 12/07/18 [History] buPROPion [Wellbutrin SR] 300 mg PO DAILY 12/07/18 [History] FLUoxetine [PROzac] 20 mg PO DAILY 12/08/18 [History] Levofloxacin [Levaquin] 750 mg PO DAILY 5 Days #5 tablet 12/09/18 [Rx] Oxygen Therapy Mode: Room Air Patient Handouts: Levofloxacin tablets, Community-Acquired Pneumonia, Adult, [id number] Referrals: [facility] [Outside] Luis F Joel MD [Primary Care Provider] - 12/18/18 2:30 pm - Discharge Summary/Plan Comment DC Time >30 min.: No - Patient Data Vitals - Most Recent: Last Vital Signs Temp 98.4 F 12/09/18 04:00 Pulse 64 12/09/18 04:00 Resp 16 12/09/18 04:00 BP 109/58 L 12/09/18 04:00 Pulse Ox 94 L 12/09/18 04:00 Weight - Most Recent: 83.915 kg I&O - Last 24 hours: Intake & Output 12/08/18 12/09/18 12/09/18 22:59 06:59 14:59 Intake Total 1040 787 Output Total 250 600 Balance 790 187 Lab Results - Last 24 hrs: Laboratory Results - last 24 hr 12/09/18 12/09/18 Range/Units 05:54 05:54 WBC 11.42 H (4.0-11.0) K/uL RBC 4.52 (4.50-5.90) M/uL Hgb 13.1 (13.0-17.0) g/dL Hct 38.9 (38.0-50.0) % MCV 86.1 (80.0-98.0) fL MCH 29.0 (27.0-32.0) pg MCHC 33.7 (31.0-37.0) g/dL RDW Std Deviation 46.3 (28.0-62.0) fl RDW Coeff of Mery 15 (11.0-15.0) % Plt Count 323 (150-400) K/uL MPV 9.90 (7.40-12.00) fL Add Manual Diff YES Neutrophils % (Manual) 50 (48.0-80.0) % Band Neutrophils % 4 % Lymphocytes % (Manual) 36 (16.0-40.0) % Monocytes % (Manual) 9 (0.0-15.0) % Eosinophils % (Manual) 1 (0.0-7.0) % Nucleated RBC % 0.0 /100WBC Absolute Seg Neuts 5.7 (1.4-5.7) Band Neutrophils # 0.5 Lymphocytes # (Manual) 4.1 H (0.6-2.4) Monocytes # (Manual) 1.0 H (0.0-0.8) Eosinophils # (Manual) 0.1 (0.0-0.7) Nucleated RBCs # 0 K/uL Sodium 140 (136-148) mmol/L Potassium 4.0 (3.5-5.1) mmol/L Chloride 103 (98-107) mmol/L Carbon Dioxide 26.9 (21.0-32.0) mmol/L BUN 18 (7.0-18.0) mg/dL Creatinine 1.1 (0.8-1.3) mg/dL Est Cr Clr Drug Dosing 78.41 mL/min Estimated GFR (MDRD) > 60.0 ml/min Glucose 106 (74-106) mg/dL Calcium 9.6 (8.5-10.1) mg/dL TOBY Results - Last 24 hrs: Microbiology 12/07/18 17:51 Aerobic Blood Culture - Preliminary Blood - Venous - Lab Draw NO GROWTH AFTER 1 DAY Anaerobic Blood Culture - Preliminary NO GROWTH AFTER 1 DAY Med Orders - Current: Current Medications Acetaminophen (Tylenol) 650 mg PO Q4H PRN PRN Reason: Pain/Fever Last Admin: 12/08/18 21:27 Dose: 650 mg Albuterol/Ipratropium (Duoneb 3.0-0.5 Mg/3 Ml) 3 ml NEB Q4HRRT PRN PRN Reason: Shortness of Breath Aspirin (Aspirin) 81 mg PO DAILY [facility] Last Admin: 12/08/18 10:27 Dose: 81 mg Benzonatate (Tessalon Perles) 200 mg PO TID [facility] Last Admin: 12/09/18 05:26 Dose: 200 mg Bupropion HCl (Wellbutrin Sr) 300 mg PO DAILY [facility] Last Admin: 12/08/18 10:33 Dose: 300 mg Cholecalciferol (Vitamin D3) 1,000 units PO DAILY [facility] Last Admin: 12/08/18 10:27 Dose: 1,000 units Enoxaparin Sodium (Lovenox) 40 mg SUBCUT Q24H [facility] Last Admin: 12/08/18 18:49 Dose: 40 mg Fluoxetine HCl (Prozac) 20 mg PO DAILY [facility] Last Admin: 12/08/18 11:35 Dose: Not Given Guaifenesin (Mucinex) 600 mg PO TID [facility] Last Admin: 12/09/18 05:26 Dose: 600 mg Levofloxacin/Dextrose 750 mg/ (Premix) 150 mls @ 100 mls/hr IV Q24H [facility] Last Admin: 12/08/18 18:50 Dose: 100 mls/hr Meloxicam (Mobic) 15 mg PO DAILY [facility] Last Admin: 12/08/18 10:27 Dose: 15 mg Metoprolol Succinate (Toprol Xl) 12.5 mg PO DAILY [facility] Last Admin: 12/08/18 10:29 Dose: 12.5 mg Non-Formulary Medication (Cyanocobalamin (Vitamin B-12) [Cyanocobalamin]) 100 mg PO DAILY [facility] Last Admin: 12/08/18 11:35 Dose: Not Given Ondansetron HCl (Zofran) 4 mg IVPUSH Q4H PRN PRN Reason: Nausea/Vomiting Vitamin B Complex 1 (Tab) 1 each PO DAILY [facility] Discontinued Medications Albuterol/Ipratropium (Duoneb 3.0-0.5 Mg/3 Ml) 3 ml NEB ONETIME ONE Stop: 12/07/18 17:14 Last Admin: 12/07/18 17:39 Dose: 3 ml Sodium Chloride (Normal Saline) 1,000 mls @ 125 mls/hr IV STAT ONE Stop: 12/08/18 01:12 Last Admin: 12/07/18 17:38 Dose: 125 mls/hr Ceftriaxone Sodium/Dextrose 1 (gm/ Premix) 50 mls @ 100 mls/hr IV ONETIME ONE Stop: 12/07/18 18:39 Last Admin: 12/07/18 18:53 Dose: 100 mls/hr Metoprolol Succinate (Toprol Xl) 15 mg PO DAILY [facility] Last Admin: 12/08/18 11:36 Dose: Not Given Non-Formulary Medication (Cholecalciferol (Vitamin D3) [Vitamin D3]) 1 tab PO DAILY [facility] Last Admin: 12/08/18 11:36 Dose: Not Given Non-Formulary Medication (Meloxicam) 15 mg PO DAILY [facility] Last Admin: 12/08/18 11:36 Dose: Not Given Non-Formulary Medication (Vitamin B Complex) 1 tab PO DAILY [facility] Last Admin: 12/08/18 11:36 Dose: Not Given <[email or web address] [email or web address] - Last Filed: 12/09/18 10:44> Discharge Summary - Hospital Course HPI Initial Comments: I have examined the patient independently of Betsy Rock DO, medical imaging technologist. I have discussed the case with her. I have reviewed and agree with the plan of care as outlined by her. Please see orders. - Patient Data Vitals - Most Recent: Last Vital Signs Temp 36.9 C 12/09/18 04:00 Pulse 72 12/09/18 10:02 Resp 16 12/09/18 04:00 BP 109/70 12/09/18 10:02 Pulse Ox 94 L 12/09/18 04:00 I&O - Last 24 hours: Intake & Output 12/08/18 12/09/18 12/09/18 22:59 06:59 14:59 Intake Total 1040 787 Output Total 250 600 Balance 790 187 Lab Results - Last 24 hrs: Laboratory Results - last 24 hr 12/09/18 12/09/18 Range/Units 05:54 05:54 WBC 11.42 H (4.0-11.0) K/uL RBC 4.52 (4.50-5.90) M/uL Hgb 13.1 (13.0-17.0) g/dL Hct 38.9 (38.0-50.0) % MCV 86.1 (80.0-98.0) fL MCH 29.0 (27.0-32.0) pg MCHC 33.7 (31.0-37.0) g/dL RDW Std Deviation 46.3 (28.0-62.0) fl RDW Coeff of Mery 15 (11.0-15.0) % Plt Count 323 (150-400) K/uL MPV 9.90 (7.40-12.00) fL Add Manual Diff YES Neutrophils % (Manual) 50 (48.0-80.0) % Band Neutrophils % 4 % Lymphocytes % (Manual) 36 (16.0-40.0) % Monocytes % (Manual) 9 (0.0-15.0) % Eosinophils % (Manual) 1 (0.0-7.0) % Nucleated RBC % 0.0 /100WBC Absolute Seg Neuts 5.7 (1.4-5.7) Band Neutrophils # 0.5 Lymphocytes # (Manual) 4.1 H (0.6-2.4) Monocytes # (Manual) 1.0 H (0.0-0.8) Eosinophils # (Manual) 0.1 (0.0-0.7) Nucleated RBCs # 0 K/uL Sodium 140 (136-148) mmol/L Potassium 4.0 (3.5-5.1) mmol/L Chloride 103 (98-107) mmol/L Carbon Dioxide 26.9 (21.0-32.0) mmol/L BUN 18 (7.0-18.0) mg/dL Creatinine 1.1 (0.8-1.3) mg/dL Est Cr Clr Drug Dosing 78.41 mL/min Estimated GFR (MDRD) > 60.0 ml/min Glucose 106 (74-106) mg/dL Calcium 9.6 (8.5-10.1) mg/dL TOBY Results - Last 24 hrs: Microbiology 12/07/18 17:51 Aerobic Blood Culture - Preliminary Blood - Venous - Lab Draw NO GROWTH AFTER 1 DAY Anaerobic Blood Culture - Preliminary NO GROWTH AFTER 1 DAY Med Orders - Current: Current Medications Acetaminophen (Tylenol) 650 mg PO Q4H PRN PRN Reason: Pain/Fever Last Admin: 12/08/18 21:27 Dose: 650 mg Albuterol/Ipratropium (Duoneb 3.0-0.5 Mg/3 Ml) 3 ml NEB Q4HRRT PRN PRN Reason: Shortness of Breath Aspirin (Aspirin) 81 mg PO DAILY [facility] Last Admin: 12/09/18 10:00 Dose: 81 mg Benzonatate (Tessalon Perles) 200 mg PO TID [facility] Last Admin: 12/09/18 05:26 Dose: 200 mg Bupropion HCl (Wellbutrin Sr) 300 mg PO DAILY [facility] Last Admin: 12/09/18 10:01 Dose: 300 mg Cholecalciferol (Vitamin D3) 1,000 units PO DAILY [facility] Last Admin: 12/09/18 09:59 Dose: 1,000 units Enoxaparin Sodium (Lovenox) 40 mg SUBCUT Q24H [facility] Last Admin: 12/08/18 18:49 Dose: 40 mg Fluoxetine HCl (Prozac) 20 mg PO DAILY [facility] Last Admin: 12/09/18 10:16 Dose: 20 mg Guaifenesin (Mucinex) 600 mg PO TID [facility] Last Admin: 12/09/18 05:26 Dose: 600 mg Levofloxacin/Dextrose 750 mg/ (Premix) 150 mls @ 100 mls/hr IV Q24H [facility] Last Admin: 12/08/18 18:50 Dose: 100 mls/hr Meloxicam (Mobic) 15 mg PO DAILY [facility] Last Admin: 12/09/18 09:59 Dose: 15 mg Metoprolol Succinate (Toprol Xl) 12.5 mg PO DAILY [facility] Last Admin: 12/09/18 10:02 Dose: 12.5 mg Non-Formulary Medication (Cyanocobalamin (Vitamin B-12) [Cyanocobalamin]) 100 mg PO DAILY [facility] Last Admin: 12/08/18 11:35 Dose: Not Given Ondansetron HCl (Zofran) 4 mg IVPUSH Q4H PRN PRN Reason: Nausea/Vomiting Vitamin B Complex 1 (Tab) 1 each PO DAILY [facility] Last Admin: 12/09/18 10:19 Dose: 1 each Discontinued Medications Albuterol/Ipratropium (Duoneb 3.0-0.5 Mg/3 Ml) 3 ml NEB ONETIME ONE Stop: 12/07/18 17:14 Last Admin: 12/07/18 17:39 Dose: 3 ml Fluoxetine HCl (Prozac) 20 mg PO DAILY [facility] Last Admin: 12/09/18 10:19 Dose: Not Given Sodium Chloride (Normal Saline) 1,000 mls @ 125 mls/hr IV STAT ONE Stop: 12/08/18 01:12 Last Admin: 12/07/18 17:38 Dose: 125 mls/hr Ceftriaxone Sodium/Dextrose 1 (gm/ Premix) 50 mls @ 100 mls/hr IV ONETIME ONE Stop: 12/07/18 18:39 Last Admin: 12/07/18 18:53 Dose: 100 mls/hr Metoprolol Succinate (Toprol Xl) 15 mg PO DAILY [facility] Last Admin: 12/08/18 11:36 Dose: Not Given Non-Formulary Medication (Cholecalciferol (Vitamin D3) [Vitamin D3]) 1 tab PO DAILY [facility] Last Admin: 12/08/18 11:36 Dose: Not Given Non-Formulary Medication (Meloxicam) 15 mg PO DAILY [facility] Last Admin: 12/08/18 11:36 Dose: Not Given Non-Formulary Medication (Vitamin B Complex) 1 tab PO DAILY [facility] Last Admin: 12/08/18 11:36 Dose: Not Given
[2018-12-09] MEDS ORDERED: Vitamin B Complex 1 TAB PO SCH (09:00)
[2018-12-09] MEDS: Meloxicam 7.5 MG Tab PO SCH (09:59)
[2018-12-09] MEDS: Cholecalciferol (Vitamin D3) 1,000 Unit Tab PO SCH (09:59)
[2018-12-09] MEDS: Aspirin 81 MG Tab.Chew PO SCH (10:00)
[2018-12-09] MEDS: buPROPion 150 MG Tab.SR PO SCH (10:01)
[2018-12-09] MEDS: Metoprolol Succinate 25 MG Tab.ER PO SCH (10:02)
[2018-12-09] MEDS: FLUoxetine Solution 20 MG/5 ML ML 120 ML Bottle PO SCH (10:19)
[2018-12-09] MEDS ORDERED: FLUoxetine 20 MG Cap PO SCH (10:30)
== END 2018-12-09 10:45 | disposition home or self-care (01) ==
LOC: MW.ED 16:58 → MW.MS 18:42
PROVIDERS: ADMIT Internal Medicine; ATTEND Internal Medicine
DX: J18.1 Lobar pneumonia, unspecified organism (principal); Z78.9 Other specified health status; I10 Essential (primary) hypertension; I48.91 Unspecified atrial fibrillation; I25.10 Atherosclerotic heart disease of native coronary artery without angina pectoris; F17.220 Nicotine dependence, chewing tobacco, uncomplicated; Z87.09 Personal history of other diseases of the respiratory system; Z79.82 Long term (current) use of aspirin; Z91.030 Bee allergy status
CPT/HCPCS: 36415; 71045; 80048; 80053; 83605; 84484; 85025; 87040; 93005; 94640; 96361; 96365; 99285; A9270; J0696; J1650; J1956; J7040; J7620-GY

== ENCOUNTER 2019-03-22 16:03 | Emergency (ER) | payer MEDICARE, OTHER ==
[2019-03-22 17:17] LABS: CHLORIDE,CL 107 mmol/L (98-107); SODIUM,NA 141 mmol/L (136-148)
--- NOTE | 2019-03-22 17:18 | CT ---
Indication: shaky and unstable. Frequent falls. Technique: CT of the head without contrast. Coronal and sagittal reformatted images. Bone and soft tissue algorithms. Comparison: None Findings: No acute intracranial hemorrhage or extra-axial collection. No evidence of acute cortical infarction. No mass effect or midline shift. Normal cerebral volume. The ventricles are normal in size, shape and contour. There is normal jo and white matter differentiation. The orbital contents are normal. Mild mucosal thickening in the maxillary sinuses. Mastoid air cells are clear. No calvarial fractures. No lytic or sclerotic osseous lesions within the calvarium or skull base. Scalp and other imaged soft tissue structures are normal. Impression: No acute intracranial abnormality. Please note that all CT scans at this facility use dose modulation, iterative reconstruction, and/or weight-based dosing when appropriate to reduce radiation dose to as low as reasonably achievable. Dictated by Luis F Lott MD @ Mar 22 2019 5:14PM Signed by Dr. Luis F Lott @ Mar 22 2019 5:17PM
--- NOTE | 2019-03-22 17:35 | CT ---
Indication: shaky and feels unstable Technique: Noncontrast axial CT of the cervical spine with coronal and sagittal reformats are provided. Comparison: No prior studies available for comparison at this institution. Findings: There is mild anterior wedging of the T1 vertebral body without evidence of sclerotic change to suggest acute fracture. Please correlate for acute tenderness at this location. Coronal images demonstrate leftward positioning of the dens with respect to the left C1 lateral mass probably chronic. No widening of the atlantodens interval. 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 Shallow disc osteophyte complex and slight anterolisthesis at C5-6. Moderate left neural foraminal narrowing at C5-6 due to uncovertebral hypertrophy. Otherwise no neural foramina narrowing. Slight retrolisthesis at C3-4 with moderate facet arthrosis. The moderate right TMJ degenerative changes. The mastoid air cells are clear. Impression: 1. No definite evidence of acute fracture. Mild anterior wedging of the T1 vertebral body without evidence of sclerotic change to suggest acute fracture. Please correlate for acute tenderness at this location. 2. Moderate left neural foraminal narrowing at C5-6 due to uncovertebral hypertrophy. 3. 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 Please note that all CT scans at this facility use dose modulation, iterative reconstruction, and/or weight-based dosing when appropriate to reduce radiation dose to as low as reasonably achievable. Dictated by Luis F Lott MD @ Mar 22 2019 5:17PM Signed by Dr. Luis F Lott @ Mar 22 2019 5:33PM
--- NOTE | 2019-03-22 17:43 | EDM.PDOC ---
ED HPI GENERAL MEDICAL PROBLEM - General Chief Complaint: General Stated Complaint: PT UNSTABLE Time Seen by Provider: 03/22/19 16:05 Source of Information: Reports: Patient History Limitations: Reports: No Limitations - History of Present Illness INITIAL COMMENTS - FREE TEXT/NARRATIVE: History of present illness: []Patient has a history of being unstable when he walks he does have a diagnosis of peripheral neuropathy but he comes in today complaining of neck pain and head shaking. His daughter brought him in concerned because he has a recent diagnosis of Lewy body dementia. he is alert and oriented at this time. Has taken several falls in the past due to his peripheral neuropathy he states when he steps on a rock or uneven surface, he loses his balance and falls. Review of systems: As per history of present illness and below otherwise all systems reviewed and negative. Past medical history: As per history of present illness and as reviewed below otherwise noncontributory. Surgical history: As per history of present illness and as reviewed below otherwise noncontributory. Social history: No reported history of drug or alcohol abuse. Family history: As per history of present illness and as reviewed below otherwise noncontributory. Physical exam: General: Well developed, well nourished in NAD HEENT: Atraumatic, normocephalic, pupils reactive, negative for conjunctival pallor or scleral icterus, mucous membranes moist, throat clear, neck supple, nontender, trachea midline. Lungs: Clear to auscultation, breath sounds equal bilaterally, chest nontender. Heart: S1S2, regular, negative for clicks, rubs, or JVD. Abdomen: NABS, Soft, nondistended, nontender. Negative for masses or hepatosplenomegaly. Negative for costovertebral tenderness. Pelvis: Stable nontender. Genitourinary: Deferred. Rectal: Deferred. Extremities: Atraumatic, negative for cords or calf pain. Neurovascular unremarkable. Neuro: Awake, alert, oriented. Cranial nerves II through XII unremarkable. Cerebellum unremarkable. Motor and sensory unremarkable throughout. Exam nonfocal. Skin:warm and dry Diagnostics: CT head negative CT C-spine shows . No definite evidence of acute fracture. Mild anterior wedging of the T1 vertebral body without evidence of sclerotic change to suggest acute fracture. Please correlate for acute tenderness at this location. 2. Moderate left neural foraminal narrowing at C5-6 due to uncovertebral hypertrophy. 3. 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 Labs are normal Therapeutics: None ED Course: Stable Impression: Chronic neck pain, peripheral neuropathy Prescriptions: Tramadol Plan: Take meds as directed, follow up with your primary care physician, return to ER if symptoms worsen or change. Definitive disposition and diagnosis as appropriate pending reevaluation and review of above. - Related Data Allergies Allergy/AdvReac Type Severity Reaction Status Date / Time bee sting Allergy Airway Uncoded 12/07/18 17:13 Tightness Home Meds: Home Meds Aspirin 1 tab PO DAILY 12/07/18 [History] Cholecalciferol (Vitamin D3) [Vitamin D3] 1 tab PO DAILY 12/07/18 [History] Cyanocobalamin (Vitamin B-12) [Cyanocobalamin] 100 mg PO DAILY 12/07/18 [History ] Meloxicam 15 mg PO DAILY 12/07/18 [History] Metoprolol Succinate [Toprol Xl] 15 mg PO DAILY 12/07/18 [History] Vitamin B Complex [B Complex] 1 tab PO DAILY 12/07/18 [History] buPROPion [Wellbutrin SR] 300 mg PO DAILY 12/07/18 [History] FLUoxetine [PROzac] 20 mg PO DAILY 12/08/18 [History] Levofloxacin [Levaquin] 750 mg PO DAILY 5 Days #5 tablet 12/09/18 [Rx] traMADol HCl [Tramadol HCl] 50 mg PO Q6H PRN #16 tablet 03/22/19 [Rx] Past Medical History HEENT History: Reports: None Cardiovascular History: Reports: Afib, [place], Pacemaker Respiratory History: Reports: None Gastrointestinal History: Reports: None Genitourinary History: Reports: None Musculoskeletal History: Reports: None Neurological History: Reports: Other (See Below) Other Neuro History: Lewy Body Disease Psychiatric History: Reports: Depression Endocrine/Metabolic History: Reports: None Hematologic History: Reports: None Immunologic History: Reports: None Oncologic (Cancer) History: Reports: None Dermatologic History: Reports: None - Infectious Disease History Infectious Disease History: Reports: Chicken Pox, Measles - Past Surgical History Head Surgeries/Procedures: Reports: None HEENT Surgical History: Reports: None Cardiovascular Surgical History: Reports: Coronary Artery Stent Respiratory Surgical History: Reports: None GI Surgical History: Reports: None Male Surgical History: Reports: None Endocrine Surgical History: Reports: None Neurological Surgical History: Reports: None Musculoskeletal Surgical History: Reports: Other (See Below) Other Musculoskeletal Surgeries/Procedures:: left knee and hand surgery Oncologic Surgical History: Reports: None Dermatological Surgical History: Reports: None Social & Family History - Family History Family Medical History: Noncontributory - Tobacco Use Smoking Status *Q: Never Smoker Second Hand Smoke Exposure: No - Caffeine Use Caffeine Use: Reports: Coffee, Soda - Recreational Drug Use Recreational Drug Use: No ED ROS GENERAL - Review of Systems Review Of Systems: See Below ED EXAM, GENERAL - Physical Exam Exam: See Below Course - Vital Signs Last Recorded V/S: Last Vital Signs Temp 96.3 F 03/22/19 16:09 Pulse 64 03/22/19 16:09 Resp 18 03/22/19 16:09 BP 130/73 03/22/19 16:09 Pulse Ox 95 03/22/19 16:09 - Orders/Labs/Meds Labs: Laboratory Tests 03/22/19 03/22/19 Range/Units 16:30 16:30 WBC 7.28 (4.0-11.0) K/uL RBC 4.45 L (4.50-5.90) M/uL Hgb 13.2 (13.0-17.0) g/dL Hct 39.4 (38.0-50.0) % MCV 88.5 (80.0-98.0) fL MCH 29.7 (27.0-32.0) pg MCHC 33.5 (31.0-37.0) g/dL RDW Std Deviation 47.7 (28.0-62.0) fl RDW Coeff of Mery 15 (11.0-15.0) % Plt Count 157 (150-400) K/uL MPV 10.60 (7.40-12.00) fL Neut % (Auto) 36.0 L (48.0-80.0) % Lymph % (Auto) 47.9 H (16.0-40.0) % Garrard % (Auto) 11.0 (0.0-15.0) % Eos % (Auto) 4.7 (0.0-7.0) % Baso % (Auto) 0.4 (0.0-1.5) % Neut # (Auto) 2.6 (1.4-5.7) K/uL Lymph # (Auto) 3.5 H (0.6-2.4) K/uL Garrard # (Auto) 0.8 (0.0-0.8) K/uL Eos # (Auto) 0.3 (0.0-0.7) K/uL Baso # (Auto) 0.0 (0.0-0.1) K/uL Nucleated RBC % 0.0 /100WBC Nucleated RBCs # 0 K/uL Sodium 141 (136-148) mmol/L Potassium 4.7 (3.5-5.1) mmol/L Chloride 107 (98-107) mmol/L Carbon Dioxide 27.5 (21.0-32.0) mmol/L BUN 19 H (7.0-18.0) mg/dL Creatinine 1.1 (0.8-1.3) mg/dL Est Cr Clr Drug Dosing 76.29 mL/min Estimated GFR (MDRD) > 60.0 ml/min Glucose 89 (74-106) mg/dL Calcium 9.0 (8.5-10.1) mg/dL Total Bilirubin 0.6 (0.2-1.0) mg/dL AST 16 (15-37) IU/L ALT 20 (14-63) IU/L Alkaline Phosphatase 72 (46-116) U/L Total Protein 6.3 L (6.4-8.2) g/dL Albumin 3.9 (3.4-5.0) g/dL Globulin 2.4 L (2.6-4.0) g/dL Albumin/Globulin Ratio 1.6 (0.9-1.6) TSH 3rd Generation 2.60 (0.36-3.74) uIU/mL Departure - Departure Time of Disposition: 17:41 Disposition: Home, Self-Care 01 Condition: Good Clinical Impression: Peripheral neuropathy Qualifiers: Peripheral neuropathy type: polyneuropathy, unspecified Qualified Code(s): G62.9 - Polyneuropathy, unspecified Clinical Impression: (Ruled Out): T12 compression fracture - Discharge Information *PRESCRIPTION DRUG MONITORING PROGRAM REVIEWED*: No *COPY OF PRESCRIPTION DRUG MONITORING REPORT IN PATIENT KINDRA: No Prescriptions: traMADol HCl [Tramadol HCl] 50 mg PO Q6H PRN #16 tablet PRN Reason: Pain Referrals: Luis F Joel MD [Primary Care Provider] - Forms: ED Department Discharge Additional Instructions: The following information is given to patients seen in the emergency department who are being discharged to home. This information is to outline your options for follow-up care. We provide all patients seen in our emergency department with a follow-up referral. The need for follow-up, as well as the timing and circumstances, are variable depending upon the specifics of your emergency department visit. If you don't have a primary care physician on staff, we will provide you with a referral. We always advise you to contact your personal physician following an emergency department visit to inform them of the circumstance of the visit and for follow-up with them and/or the need for any referrals to a consulting specialist. The emergency department will also refer you to a specialist when appropriate. This referral assures that you have the opportunity for follow-up care with a specialist. All of these measure are taken in an effort to provide you with optimal care, which includes your follow-up. Under all circumstances we always encourage you to contact your private physician who remains a resource for coordinating your care. When calling for follow-up care, please make the office aware that this follow-up is from your recent emergency room visit. If for any reason you are refused follow-up, please contact the [facility] Emergency Department at and asked to speak to the emergency department charge nurse. Take meds as directed, follow up with your primary care physician, return to ER if symptoms worsen or change. [facility] - Neurology Professional [address], [address] [place] [address]
== END 2019-03-22 17:56 | disposition home or self-care (01) ==
LOC: MW.ED 16:03
DX: M54.5 Low back pain (principal); G89.29 Other chronic pain; G62.9 Polyneuropathy, unspecified; I48.91 Unspecified atrial fibrillation; I25.2 Old myocardial infarction; F32.9 Major depressive disorder, single episode, unspecified; Z91.030 Bee allergy status; Z79.82 Long term (current) use of aspirin; Z79.899 Other long term (current) drug therapy; Z95.0 Presence of cardiac pacemaker
CPT/HCPCS: 36415; 70450; 70450-26; 72125; 72125-26; 80053; 84443; 85025; 93005; 99285-25

== ENCOUNTER 2020-03-25 11:48 | Emergency (ER) | payer OTHER ==
--- NOTE | 2020-03-25 11:57 | EDM.PDOC ---
ED HPI GENERAL MEDICAL PROBLEM - General Chief Complaint: Trauma Stated Complaint: FELL Time Seen by Provider: 03/25/20 11:53 - History of Present Illness INITIAL COMMENTS - FREE TEXT/NARRATIVE: 69-year-old male with a history of Parkinson's disease presents after rolling his ankle. Patient states that he was trying to move things from one tackle box into another tackle box and he moved his foot and sustained an inversion injury to the right ankle. He did not fall he did not strike his head he has no other symptoms of any kind. He states that he limped into the house and presents to the ED now. He denies any headache neck pain chest pain abdominal pain or pain in the hips or knees or anywhere in the bilateral upper or left lower extremity the pain in the right ankle is moderate worsens with ambulation Right ankle Pain Score (Numeric/FACES): 8 - Related Data Allergies Allergy/AdvReac Type Severity Reaction Status Date / Time bee sting Allergy Airway Uncoded 03/25/20 11:54 Tightness Home Meds: Home Meds Aspirin 1 tab PO DAILY 12/07/18 [History] Cholecalciferol (Vitamin D3) [Vitamin D3] 1 tab PO DAILY 12/07/18 [History] Cyanocobalamin (Vitamin B-12) [Cyanocobalamin] 100 mg PO DAILY 12/07/18 [History] Meloxicam 15 mg PO DAILY 12/07/18 [History] Metoprolol Succinate [Toprol Xl] 15 mg PO DAILY 12/07/18 [History] Vitamin B Complex [B Complex] 1 tab PO DAILY 12/07/18 [History] buPROPion [Wellbutrin SR] 300 mg PO DAILY 12/07/18 [History] FLUoxetine [PROzac] 20 mg PO DAILY 12/08/18 [History] levoFLOXacin [Levaquin] 750 mg PO DAILY 5 Days #5 tablet 12/09/18 [Rx] traMADol HCl [Tramadol HCl] 50 mg PO Q6H PRN #16 tablet 03/22/19 [Rx] Past Medical History HEENT History: Reports: None Cardiovascular History: Reports: Afib, [place], Pacemaker Respiratory History: Reports: None Gastrointestinal History: Reports: None Genitourinary History: Reports: None Musculoskeletal History: Reports: None Neurological History: Reports: Other (See Below) Other Neuro History: Lewy Body Disease Psychiatric History: Reports: Depression Endocrine/Metabolic History: Reports: None Hematologic History: Reports: None Immunologic History: Reports: None Oncologic (Cancer) History: Reports: None Dermatologic History: Reports: None - Infectious Disease History Infectious Disease History: Reports: Chicken Pox, Measles - Past Surgical History Head Surgeries/Procedures: Reports: None HEENT Surgical History: Reports: None Cardiovascular Surgical History: Reports: Coronary Artery Stent Respiratory Surgical History: Reports: None GI Surgical History: Reports: None Male Surgical History: Reports: None Endocrine Surgical History: Reports: None Neurological Surgical History: Reports: None Musculoskeletal Surgical History: Reports: Other (See Below) Other Musculoskeletal Surgeries/Procedures:: left knee and hand surgery Oncologic Surgical History: Reports: None Dermatological Surgical History: Reports: None Social & Family History - Family History Family Medical History: Noncontributory - Caffeine Use Caffeine Use: Reports: Coffee, Soda Review of Systems - Review of Systems Review Of Systems: See Below Constitutional: Reports: No Symptoms Mouth/Throat: Reports: No Symptoms Respiratory: Reports: No Symptoms Cardiovascular: Reports: No Symptoms GI/Abdominal: Reports: No Symptoms Musculoskeletal: Reports: Joint Pain Neurological: Reports: Other (Chronic bilateral upper and lower extremity distal numbness being evaluated by primary providers) Psychiatric: Reports: No Symptoms ED EXAM, GENERAL - Physical Exam Exam: See Below Free Text/Narrative:: General Appearance: No acute distress, appears comfortable Skin: No rash HEENT: Normocephalic/atraumatic, sclera anicteric, mucous membranes moist Neck: Normal range of motion Chest and Lungs: Bilateral breath sounds, clear to auscultation Cardiovascular: Regular rate and rhythm, no murmur Abdomen: Soft, non-tender Back: Normal Musculoskeletal: 2+ right DP pulse, no proximal fibular tenderness, no focal pain swelling deformity or limitation of range of motion is present in the bilateral shoulders elbows wrists hips knees or left ankle. Patient does have some significant right lateral ankle swelling primarily over the area of the ATFL, there is focal lateral malleolar tenderness no medial malleoli tenderness no midfoot tenderness. Neurologic: Awake, alert, no obvious deficits, moving all extremities Psychiatric: Appropriate, cooperative ED TRAUMA PROCEDURES - Splinting Right Lower Extremity Pre-Procedure NV Status: Normal Post-Procedure NV Status: Normal Splint Material: Other (kaitlynn wrap and air cast) Applied & Form Fitted By: Nurse Provider Post-Splint Application NV Check: NV Status Normal Complications: No Course - Vital Signs Last Recorded V/S: Last Vital Signs Temp 95.9 F L 03/25/20 11:51 Pulse 95 03/25/20 11:51 Resp 18 03/25/20 11:51 BP 123/81 03/25/20 11:51 Pulse Ox 97 03/25/20 11:51 - Orders/Labs/Meds Orders: Active Orders 24 hr Category Date Time Status DME for Discharge [COMM] Stat Oth 03/25/20 12:31 Ordered Departure - Departure Time of Disposition: 12:33 Disposition: Home, Self-Care 01 Condition: Good Clinical Impression: Ankle sprain, Avulsion fracture of talus - Discharge Information *PRESCRIPTION DRUG MONITORING PROGRAM REVIEWED*: Not Applicable *COPY OF PRESCRIPTION DRUG MONITORING REPORT IN PATIENT KINDRA: Not Applicable Instructions: Ankle Sprain, [id number], How to Use Cold Therapy, Walking Boot, Adult Forms: ED Department Discharge Additional Instructions: You have a severe ankle sprain and a very small avulsion fracture of your talus. For this reason it is important that you use the walking boot whenever you are up and about and it is important that you follow-up with orthopedic surgery. [facility] - Orthopedic Clinic [address], [address] [place] [address] The following information is given to patients seen in the emergency department who are being discharged to home. This information is to outline your options for follow-up care. We provide all patients seen in our emergency department with a follow-up referral. The need for follow-up, as well as the timing and circumstances, are variable depending upon the specifics of your emergency department visit. If you don't have a primary care physician on staff, we will provide you with a referral. We always advise you to contact your personal physician following an emergency department visit to inform them of the circumstance of the visit and for follow-up with them and/or the need for any referrals to a consulting specialist. The emergency department will also refer you to a specialist when appropriate. This referral assures that you have the opportunity for follow-up care with a specialist. All of these measure are taken in an effort to provide you with optimal care, which includes your follow-up. Under all circumstances we always encourage you to contact your private physician who remains a resource for coordinating your care. When calling for follow-up care, please make the office aware that this follow-up is from your recent emergency room visit. If for any reason you are refused follow-up, please contact the [facility] Emergency Department at and asked to speak to the emergency department charge nurse. Sepsis Event Note (ED) - Focused Exam Vital Signs: Vital Signs Temp Pulse Resp BP Pulse Ox 03/25/20 11:51 95.9 F L 95 18 123/81 97 - My Orders Last 24 Hours: My Active Orders 03/25/20 12:31 DME for Discharge [COMM] Stat - Assessment/Plan Last 24 Hours: My Active Orders 03/25/20 12:31 DME for Discharge [COMM] Stat Assessment:: 69-year-old male presents with likely right ankle sprain. Trauma activation was called in triage for a "ground-level fall." However, the patient did not fall he rolled his ankle but remained upright. He states that he is on a blood thinner but cannot recall the name. X-ray pending will apply ice anticipate discharge with ankle splint. X-ray demonstrates the ankle sprain and a small lateral talus fracture associated with it given these findings patient was placed in a walking boot and he will follow-up with orthopedic surgery.
--- NOTE | 2020-03-25 12:29 | CR ---
Right ankle: 3 views right ankle were obtained. Comparison: No previous ankle study. Soft tissue swelling is identified. Ankle mortise is symmetric. Vascular calcification is noted. Minimal cortical avulsion fracture is seen most likely off the lateral talus. Joint effusion is seen. No additional abnormality is appreciated. Impression: 1. Soft tissue swelling and joint effusion. 2. Minimal cortical avulsion fracture off the lateral talus. 3. No additional acute bony abnormality is seen. Diagnostic code #3 Study was dictated in MDT
== END 2020-03-25 12:56 | disposition home or self-care (01) ==
LOC: MW.ED 11:48
DX: S92.151A Displaced avulsion fracture (chip fracture) of right talus, initial encounter for closed fracture (principal); S93.401A Sprain of unspecified ligament of right ankle, initial encounter; F32.9 Major depressive disorder, single episode, unspecified; I48.91 Unspecified atrial fibrillation; I25.2 Old myocardial infarction; Z91.030 Bee allergy status; Z79.82 Long term (current) use of aspirin; Z79.899 Other long term (current) drug therapy; X50.9XXA Other and unspecified overexertion or strenuous movements or postures, initial encounter
CPT/HCPCS: 73610-26-RT; 73610-RT; 99283-25

== ENCOUNTER 2020-06-19 17:01 | Emergency (ER) | payer OTHER ==
[2020-06-19] MEDS ORDERED: Ondansetron 4 MG/2 ML SDV IVPUSH ONE (17:49)
[2020-06-19] MEDS ORDERED: Sodium Chloride 0.9% 2.5 ML Syringe FLUSH PRN (17:49)
[2020-06-19] MEDS ORDERED: Famotidine 20 MG/2 ML SDV IVPUSH ONE (17:49)
[2020-06-19] MEDS ORDERED: Sodium Chloride 0.9% 10 ML Syringe FLUSH PRN (17:49)
[2020-06-19] MEDS ORDERED: Sodium Chloride 0.9% 1,000 ML IV ONE (17:49)
--- NOTE | 2020-06-19 18:00 | EDM.PDOC ---
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 Review of systems: As per history of present illness and below otherwise all systems reviewed and negative. Past medical history: As per history of present illness and as reviewed below otherwise noncontributory. Surgical history: As per history of present illness and as reviewed below otherwise noncontributory. Social history: No reported history of drug or alcohol abuse. Family history: As per history of present illness and as reviewed below otherwise noncontributory. Physical exam: HEENT: Atraumatic, normocephalic, pupils reactive, negative for conjunctival pallor or scleral icterus, mucous membranes tacky, throat clear, neck supple, nontender, trachea midline. Lungs: Clear to auscultation, breath sounds equal bilaterally, chest nontender. Heart: S1S2, regular, negative for clicks, rubs, or JVD. Abdomen: Soft, nondistended, there is left lower quadrant tenderness without rebound or guarding. Negative for masses or hepatosplenomegaly. Negative for costovertebral tenderness. Pelvis: Stable nontender. Genitourinary: Deferred. Rectal: Deferred. Extremities: Atraumatic, negative for cords or calf pain. Neurovascular unremarkable. Neuro: Awake, alert, oriented. Cranial nerves II through XII unremarkable. Cerebellum unremarkable. Motor and sensory unremarkable throughout. Exam nonfocal. No pronator drift he has a resting tremor Diagnostics: [] Therapeutics: [] Impression: Patient has a constellation of problems including headache. And abdominal pain we will do some labs some medications for stomach hydration CT of his brain and CT of his abdomen and pelvis. [] Plan: [] Definitive disposition and diagnosis as appropriate pending reevaluation and review of above. lower abdomen Pain Score (Numeric/FACES): 7 - Related Data Allergies Allergy/AdvReac Type Severity Reaction Status Date / Time bee sting Allergy Airway Uncoded 06/19/20 17:15 Tightness Home Meds: Home Meds Cholecalciferol (Vitamin D3) [Vitamin D3] 2 tab PO DAILY 12/07/18 [History] Cyanocobalamin (Vitamin B-12) [Cyanocobalamin] 100 mg PO DAILY 12/07/18 [History] Meloxicam 15 mg PO DAILY 12/07/18 [History] Metoprolol Succinate [Toprol Xl] 15 mg PO DAILY 12/07/18 [History] Vitamin B Complex [B Complex] 1 tab PO DAILY 12/07/18 [History] buPROPion [Wellbutrin SR] 300 mg PO DAILY 12/07/18 [History] FLUoxetine [PROzac] 30 mg PO DAILY 12/08/18 [History] Ondansetron [Zofran ODT] 4 mg PO Q6H PRN #10 tab.dis 06/19/20 [Rx] Past Medical History HEENT History: Reports: None Cardiovascular History: Reports: Afib, AR, Pacemaker Respiratory History: Reports: None Gastrointestinal History: Reports: None Genitourinary History: Reports: None Musculoskeletal History: Reports: None Neurological History: Reports: Neuropathy, Peripheral, Parkinson's, Other (See Below) Other Neuro History: Lewy Body Disease Psychiatric History: Reports: Dementia, Depression Endocrine/Metabolic History: Reports: None Hematologic History: Reports: None Immunologic History: Reports: None Oncologic (Cancer) History: Reports: None Dermatologic History: Reports: None - Infectious Disease History Infectious Disease History: Reports: Chicken Pox, Measles - Past Surgical History Head Surgeries/Procedures: Reports: None HEENT Surgical History: Reports: None Cardiovascular Surgical History: Reports: Coronary Artery Bypass, Coronary Artery Stent Respiratory Surgical History: Reports: None GI Surgical History: Reports: Hernia, Abdominal Male Surgical History: Reports: None Endocrine Surgical History: Reports: None Neurological Surgical History: Reports: None Musculoskeletal Surgical History: Reports: Other (See Below) Other Musculoskeletal Surgeries/Procedures:: left knee and hand surgery Oncologic Surgical History: Reports: None Dermatological Surgical History: Reports: None Social & Family History - Family History Family Medical History: Noncontributory - Tobacco Use Smoking Status *Q: Current Some Day Smoker Years of Tobacco use: 55 Packs/Tins Daily: 0.2 - Caffeine Use Caffeine Use: Reports: Coffee, Soda - Recreational Drug Use Recreational Drug Use: No ED ROS GENERAL - Review of Systems Review Of Systems: See Below ED EXAM, GENERAL - Physical Exam Exam: See Below Departure - Departure Disposition: Home, Self-Care 01 Clinical Impression: Dehydration, Cephalgia, Abdominal pain, Pneumatosis intestinalis - Discharge Information Instructions: Dehydration, Adult, [id number] Referrals: PCP,None [Primary Care Provider] - Forms: ED Department Discharge Additional Instructions: [facility] - Primary Care [address] [place] [address] [place] [address] The following information is given to patients seen in the emergency department who are being discharged to home. This information is to outline your options for follow-up care. We provide all patients seen in our emergency department with a follow-up referral. The need for follow-up, as well as the timing and circumstances, are variable depending upon the specifics of your emergency department visit. If you don't have a primary care physician on staff, we will provide you with a referral. We always advise you to contact your personal physician following an emergency department visit to inform them of the circumstance of the visit and for follow-up with them and/or the need for any referrals to a consulting specialist. The emergency department will also refer you to a specialist when appropriate. This referral assures that you have the opportunity for follow-up care with a specialist. All of these measure are taken in an effort to provide you with optimal care, which includes your follow-up. Under all circumstances we always encourage you to contact your private physician who remains a resource for coordinating your care. When calling for follow-up care, please make the office aware that this follow-up is from your recent emergency room visit. If for any reason you are refused follow-up, please contact the [facility] Emergency Department at and asked to speak to the emergency department charge nurse. Call radiology and scheduling office and arrange CT angios in the morning. [facility] Return if worse. Any of fluids and make sure you do a good job of this as well as not all pure water because her sodium was slightly low. Sepsis Event Note (ED) - Evaluation Sepsis Screening Result: No Definite Risk <Shaun Gray - Last Filed: 06/19/20 20:08> Course - Vital Signs Text/Narrative:: This patient had a white count elevation at the [facility] and was sent to me has a normal white count now. He feels better after hydration. He did complain of abdominal pain and inability to keep food or fluids down. At 7:33 PM the radiologist called me and said there were increased loops of small bowel with pneumatosis in the bowel wall and the differential would be mesenteric ischemia. Lactate is added and will reconsider the possibility of evaluating the blood flow to his mesentery. He has a borderline systolic function on his last echocardiogram with 50% EF. Mitral regurgitation. 2003 in view of normal lactate it was reported and patient improving clinically with hydration I discussed CT angios with the health and safety technician. He already has hydration but did receive intravenous contrast for the original CT tonight. Since he has been sick for a week and not deteriorating significantly and now feels better I am going to do an outpatient CT angios and refer him back to the [facility]. It will be ordered for tomorrow if possible. Last Recorded V/S: Last Vital Signs Temp 97.4 F 06/19/20 17:10 Pulse 79 06/19/20 18:31 Resp 16 06/19/20 18:31 BP 117/72 06/19/20 18:31 Pulse Ox 96 06/19/20 18:31 - Orders/Labs/Meds Orders: Active Orders 24 hr Category Date Time Status Ang Abdomen [CT] Stat Exams 06/19/20 19:54 Stop Req Sodium Chloride 0.9% [Saline Flush] Med 06/19/20 17:49 Active 10 ml FLUSH ASDIRECTED PRN Sodium Chloride 0.9% [Saline Flush] Med 06/19/20 17:49 Active 2.5 ml FLUSH ASDIRECTED PRN Saline Lock Insert [OM.PC] Stat Oth 06/19/20 17:49 Ordered Medication Orders Sodium Chloride (Saline Flush) 10 ml FLUSH ASDIRECTED PRN PRN Reason: Keep Vein Open Last Admin: 06/19/20 18:22 Dose: 10 ml Documented by: JANELL Sodium Chloride (Saline Flush) 2.5 ml FLUSH ASDIRECTED PRN PRN Reason: Keep Vein Open Last Admin: 06/19/20 18:22 Dose: 2.5 ml Documented by: JANELL Labs: Laboratory Tests 06/19/20 06/19/20 06/19/20 Range/Units 18:13 18:20 18:20 WBC 10.93 (4.0-11.0) K/uL RBC 4.40 L (4.50-5.90) M/uL Hgb 13.0 (13.0-17.0) g/dL Hct 39.1 (38.0-50.0) % MCV 88.9 (80.0-98.0) fL MCH 29.5 (27.0-32.0) pg MCHC 33.2 (31.0-37.0) g/dL RDW Std Deviation 49.5 (28.0-62.0) fl RDW Coeff of Mery 15 (11.0-15.0) % Plt Count 201 (150-400) K/uL MPV 10.10 (7.40-12.00) fL Neut % (Auto) 52.6 (48.0-80.0) % Lymph % (Auto) 36.8 (16.0-40.0) % [place] % (Auto) 9.8 (0.0-15.0) % Eos % (Auto) 0.7 (0.0-7.0) % Baso % (Auto) 0.1 (0.0-1.5) % Neut # (Auto) 5.8 H (1.4-5.7) K/uL Lymph # (Auto) 4.0 H (0.6-2.4) K/uL [place] # (Auto) 1.1 H (0.0-0.8) K/uL Eos # (Auto) 0.1 (0.0-0.7) K/uL Baso # (Auto) 0.0 (0.0-0.1) K/uL Nucleated RBC % 0.0 /100WBC Nucleated RBCs # 0 K/uL Lactate (0.20-2.00) mmol/L Sodium 134 L (136-148) mmol/L Potassium 4.3 (3.5-5.1) mmol/L Chloride 101 (98-107) mmol/L Carbon Dioxide 26.6 (21.0-32.0) mmol/L BUN 24 H (7.0-18.0) mg/dL Creatinine 1.3 (0.8-1.3) mg/dL Est Cr Clr Drug Dosing 62.81 mL/min Estimated GFR (MDRD) 54.9 ml/min Glucose 93 (74-106) mg/dL Calcium 9.4 (8.5-10.1) mg/dL Total Bilirubin 0.4 (0.2-1.0) mg/dL AST 25 (15-37) IU/L ALT 28 (14-63) IU/L Alkaline Phosphatase 90 (46-116) U/L Total Protein 8.6 H (6.4-8.2) g/dL Albumin 3.5 (3.4-5.0) g/dL Globulin 5.1 H (2.6-4.0) g/dL Albumin/Globulin Ratio 0.7 L (0.9-1.6) Lipase 134 (73-393) U/L Urine Color YELLOW Urine Appearance CLEAR Urine pH 6.0 (5.0-8.0) Ur Specific [place] 1.010 (1.001-1.035) Urine Protein NEGATIVE (NEGATIVE) mg/dL Urine Glucose (UA) NEGATIVE (NEGATIVE) mg/dL Urine Ketones NEGATIVE (NEGATIVE) mg/dL Urine Occult Blood NEGATIVE (NEGATIVE) Urine Nitrite NEGATIVE (NEGATIVE) Urine Bilirubin NEGATIVE (NEGATIVE) Urine Urobilinogen 0.2 (<2.0) EU/dL Ur Leukocyte Esterase NEGATIVE (NEGATIVE) 06/19/20 Range/Units 19:45 WBC (4.0-11.0) K/uL RBC (4.50-5.90) M/uL Hgb (13.0-17.0) g/dL Hct (38.0-50.0) % MCV (80.0-98.0) fL MCH (27.0-32.0) pg MCHC (31.0-37.0) g/dL RDW Std Deviation (28.0-62.0) fl RDW Coeff of Mery (11.0-15.0) % Plt Count (150-400) K/uL MPV (7.40-12.00) fL Neut % (Auto) (48.0-80.0) % Lymph % (Auto) (16.0-40.0) % [place] % (Auto) (0.0-15.0) % Eos % (Auto) (0.0-7.0) % Baso % (Auto) (0.0-1.5) % Neut # (Auto) (1.4-5.7) K/uL Lymph # (Auto) (0.6-2.4) K/uL [place] # (Auto) (0.0-0.8) K/uL Eos # (Auto) (0.0-0.7) K/uL Baso # (Auto) (0.0-0.1) K/uL Nucleated RBC % /100WBC Nucleated RBCs # K/uL Lactate 0.7 (0.20-2.00) mmol/L Sodium (136-148) mmol/L Potassium (3.5-5.1) mmol/L Chloride (98-107) mmol/L Carbon Dioxide (21.0-32.0) mmol/L BUN (7.0-18.0) mg/dL Creatinine (0.8-1.3) mg/dL Est Cr Clr Drug Dosing mL/min Estimated GFR (MDRD) ml/min Glucose (74-106) mg/dL Calcium (8.5-10.1) mg/dL Total Bilirubin (0.2-1.0) mg/dL AST (15-37) IU/L ALT (14-63) IU/L Alkaline Phosphatase (46-116) U/L Total Protein (6.4-8.2) g/dL Albumin (3.4-5.0) g/dL Globulin (2.6-4.0) g/dL Albumin/Globulin Ratio (0.9-1.6) Lipase (73-393) U/L Urine Color Urine Appearance Urine pH (5.0-8.0) Ur Specific [place] (1.001-1.035) Urine Protein (NEGATIVE) mg/dL Urine Glucose (UA) (NEGATIVE) mg/dL Urine Ketones (NEGATIVE) mg/dL Urine Occult Blood (NEGATIVE) Urine Nitrite (NEGATIVE) Urine Bilirubin (NEGATIVE) Urine Urobilinogen (<2.0) EU/dL Ur Leukocyte Esterase (NEGATIVE) Meds: Medications Generic Name Dose Route Start Last Admin Trade Name Freq PRN Reason Stop Dose Admin Sodium Chloride 10 ml 06/19/20 17:49 06/19/20 18:22 Saline Flush FLUSH 10 ml ASDIRECTED PRN Administration Keep Vein Open Sodium Chloride 2.5 ml 06/19/20 17:49 06/19/20 18:22 Saline Flush FLUSH 2.5 ml ASDIRECTED PRN Administration Keep Vein Open Discontinued Medications Generic Name Dose Route Start Last Admin Trade Name Freq PRN Reason Stop Dose Admin Famotidine 20 mg 06/19/20 17:49 06/19/20 18:22 Pepcid IVPUSH 06/19/20 17:50 20 mg ONETIME ONE Administration Sodium Chloride 1,000 mls @ 999 mls/hr 06/19/20 17:49 06/19/20 18:22 Normal Saline IV 06/19/20 18:49 999 mls/hr .Bolus ONE Administration Iopamidol 100 ml 06/19/20 19:25 06/19/20 19:26 Isovue-370 (76%) IVPUSH 06/19/20 19:26 100 ml ONETIME STA Administration Ondansetron HCl 4 mg 06/19/20 17:49 06/19/20 18:22 Zofran IVPUSH 06/19/20 17:50 4 mg ONETIME ONE Administration Departure - Departure Time of Disposition: 20:08 Condition: Good Sepsis Event Note (ED) - Focused Exam Vital Signs: Vital Signs Temp Pulse Resp BP Pulse Ox 06/19/20 18:31 79 16 117/72 96 06/19/20 17:10 97.4 F 77 18 114/74 95 - My Orders Last 24 Hours: My Active Orders 06/19/20 19:54 Ang Abdomen [CT] Stat - Assessment/Plan Last 24 Hours: My Active Orders 06/19/20 19:54 Ang Abdomen [CT] Stat
[2020-06-19 18:46] LABS: CARBON DIOXIDE,CO2 26.6 mmol/L (21.0-32.0); POTASSIUM,K 4.3 mmol/L (3.5-5.1)
--- NOTE | 2020-06-19 19:24 | CT ---
INDICATION: Headache TECHNIQUE: CT Head without i.v. contrast. COMPARISON: 11/23/2019 FINDINGS: CSF space: Unremarkable for age. Brain: No evidence of mass, acute infarction or hemorrhage is seen. No mass-effect or midline shift is seen. Mild diffuse cortical atrophy is noted. The brain parenchyma is otherwise normal in appearance with preservation of the casey-white matter junction. Calvarium: The visualized paranasal sinuses are well aerated. The mastoid air cells are clear. The visualized orbits are grossly unremarkable. The calvarium is unremarkable in appearance with no fractures identified. IMPRESSION: 1. No evidence of acute infarction, intracranial hemorrhage, or mass-effect seen. Please note that all CT scans at this facility use dose modulation, iterative reconstruction, and/or weight-based dosing when appropriate to reduce radiation dose to as low as reasonably achievable. Dictated by: Jessee Lewis MD @ 06/19/2020 19:22:54 (Electronically Signed)
[2020-06-19] MEDS ORDERED: Iopamidol 755 Mg/ML 100 ML Bottle IVPUSH STA (19:25)
--- NOTE | 2020-06-19 19:39 | CT ---
INDICATION: Abdominal pain COMPARISON: None TECHNIQUE: CT examination of the abdomen and pelvis was performed following the uneventful intravenous administration of 100 cc of Isovue 3 7. Thin section axial images were obtained from the lung bases through the pubic symphysis. Oral contrast was not administered. Please note that all CT scans at this facility use dose modulation, iterative reconstruction, and/or weight-based dosing when appropriate to reduce radiation dose to as low as reasonably achievable. FINDINGS: LUNG BASES: Bibasilar atelectasis. Heart mildly enlarged but the lung bases. Vascular calcifications. Pacer. Small hiatal hernia. LIVER/BILIARY SYSTEM:The liver is normal in size and configuration. There is no focal mass and there is no intra- or extra hepatic biliary ductal dilatation.The gall bladder appears normal. ADRENALS: Normal KIDNEYS, URETERS and BLADDER:Kidneys normal in size. Left renal cyst measuring about 4.4 centimeters. No obstructive uropathy. Bladder wall thickening probably due to chronic bladder outlet obstruction. Enlarged prostate SPLEEN:Normal appearance. PANCREAS: Appears normal. RETROPERITONEUM and MESENTERY: There is no mass, adenopathy or aortic aneurysm. GASTROINTESTINAL SYSTEM: Regarding the colon, there is diverticulosis but no evidence of diverticulitis or colitis. The small bowel is prominent and fluid-filled with scattered air-fluid levels. There is several areas suggestive of pneumatosis for example a loop in the central right paraumbilical area on 80 through 107. This can be seen in ischemia though there are benign causes of pneumatosis. Correlate with clinical and laboratory findings. PELVIS: Enlarged prostate. Bladder wall thickening as mentioned above. OSSEOUS STRUCTURES and ABDOMINAL WALL: There is an age-appropriate appearance of the osseous structures.No significant abdominal wall defect. OTHER: No free fluid or free air. IMPRESSION: 1. Prominent loops of small bowel with scattered air-fluid levels. There are several areas where there is a suggestion of small bowel pneumatosis. This can be seen in ischemia though there are benign causes of pneumatosis. Correlate with clinical history and laboratory data. 2. Other incidental nonacute appearing findings as discussed above. 3. The above findings were discussed by myself with Dr. Gray at 7:30 p.m. on June 19, [address] that all [address] scans at this facility use dose modulation, iterative reconstruction, and/or weight-based dosing when appropriate to reduce radiation dose to as low as reasonably achievable. Dictated by Jagdish Sharp MD @ Jun 19 2020 7:23PM Signed by Dr. Jagdish Sharp @ Jun 19 2020 7:37PM
== END 2020-06-19 20:50 | disposition home or self-care (01) ==
LOC: MW.ED 17:01
DX: R51.9 Headache, unspecified (principal); K63.89 Other specified diseases of intestine; E86.0 Dehydration; I25.2 Old myocardial infarction; I48.91 Unspecified atrial fibrillation; F32.9 Major depressive disorder, single episode, unspecified; G62.9 Polyneuropathy, unspecified; G20 Parkinson's disease; F02.80 Dementia in other diseases classified elsewhere, unspecified severity, without behavioral disturbance, psychotic disturbance, mood disturbance, and anxiety; F17.210 Nicotine dependence, cigarettes, uncomplicated; Z95.5 Presence of coronary angioplasty implant and graft; Z91.030 Bee allergy status; Z79.899 Other long term (current) drug therapy
CPT/HCPCS: 36415; 70450; 74177; 80053; 81003; 83605; 83690; 85025; 96361; 96374; 96375; 99284; J2405; J3490; J7030; Q9967

== ENCOUNTER 2020-06-20 13:43 | Observation (INO) | payer OTHER ==
[2020-06-20] MEDS ORDERED: Sodium Chloride 0.9% 10 ML Syringe FLUSH PRN (14:19)
[2020-06-20] MEDS ORDERED: Sodium Chloride 0.9% 2.5 ML Syringe FLUSH PRN (14:19)
[2020-06-20] MEDS ORDERED: Ondansetron 4 MG/2 ML SDV IVPUSH ONE (14:19)
--- NOTE | 2020-06-20 14:26 | EDM.PDOC ---
ED HPI GENERAL MEDICAL PROBLEM - General Chief Complaint: Gastrointestinal Problem Stated Complaint: possible perf bowel Time Seen by Provider: 06/20/20 13:58 - History of Present Illness INITIAL COMMENTS - FREE TEXT/NARRATIVE: 70-year-old male with a history of neuropathy and IVIG infusions who is presenting with nausea vomiting and lower abdominal discomfort as well as diarrhea that is been going on over the last few days it is associated with anorexia. Patient was seen in the ER yesterday his lactic acid was normal he was given IV fluids and Zofran his symptoms improved his CT scan however was concerning for potential pneumatosis intestinalis. However, given the improvement of symptoms and the reassuring blood work patient was discharged for outpatient CT angios. That CT [place] was done earlier today and they were contacted [facility] and referred back to the ER. The patient reports that he feels somewhat poorly he reports lower abdominal discomfort that worsens with eating as well as nausea and a poor appetite. No fevers or chills. abdominal Pain Score (Numeric/FACES): 5 - Related Data Allergies Allergy/AdvReac Type Severity Reaction Status Date / Time bee sting Allergy Airway Uncoded 06/20/20 13:51 Tightness Home Meds: Home Meds Cholecalciferol (Vitamin D3) [Vitamin D3] 2 tab PO DAILY 12/07/18 [History] Cyanocobalamin (Vitamin B-12) [Cyanocobalamin] 100 mg PO DAILY 12/07/18 [History] Meloxicam 15 mg PO DAILY 12/07/18 [History] Metoprolol Succinate [Toprol Xl] 15 mg PO DAILY 12/07/18 [History] Vitamin B Complex [B Complex] 1 tab PO DAILY 12/07/18 [History] buPROPion [Wellbutrin SR] 300 mg PO DAILY 12/07/18 [History] FLUoxetine [PROzac] 30 mg PO DAILY 12/08/18 [History] Ondansetron [Zofran ODT] 4 mg PO Q6H PRN #10 tab.dis 06/19/20 [Rx] Past Medical History HEENT History: Reports: None Cardiovascular History: Reports: Afib, [place], Pacemaker Respiratory History: Reports: None Gastrointestinal History: Reports: None Genitourinary History: Reports: None Musculoskeletal History: Reports: None Neurological History: Reports: Neuropathy, Peripheral, Parkinson's, Other (See Below) Other Neuro History: Lewy Body Disease Psychiatric History: Reports: Dementia, Depression Endocrine/Metabolic History: Reports: None Hematologic History: Reports: None Immunologic History: Reports: None Oncologic (Cancer) History: Reports: None Dermatologic History: Reports: None - Infectious Disease History Infectious Disease History: Reports: Chicken Pox, Influenza - Past Surgical History Head Surgeries/Procedures: Reports: None HEENT Surgical History: Reports: None Cardiovascular Surgical History: Reports: Coronary Artery Bypass, Coronary Artery Stent Respiratory Surgical History: Reports: None GI Surgical History: Reports: Hernia, Abdominal Male Surgical History: Reports: None Endocrine Surgical History: Reports: None Neurological Surgical History: Reports: None Musculoskeletal Surgical History: Reports: Other (See Below) Other Musculoskeletal Surgeries/Procedures:: left knee and hand surgery Oncologic Surgical History: Reports: None Dermatological Surgical History: Reports: None Social & Family History - Family History Family Medical History: Noncontributory - Tobacco Use Smoking Status *Q: Current Some Day Smoker Years of Tobacco use: 50 Packs/Tins Daily: 0.5 - Caffeine Use Caffeine Use: Reports: Coffee, Soda - Recreational Drug Use Recreational Drug Use: No ED ROS GENERAL - Review of Systems Review Of Systems: See Below Free Text/Narrative/Comment: General: No fever. Skin: No rash. Eyes: No vision problems. ENT: No sore throat. Neck: No neck stiffness. Respiratory: No shortness of breath. Cardiac: No chest pain. Gastrointestinal: Per HPI Urinary: No dysuria. Musculoskeletal: No myalgias/arthralgias. Neurologic: No headache. ED EXAM, GENERAL - Physical Exam Exam: See Below Free Text/Narrative:: General Appearance: No acute distress, appears comfortable Skin: No rash HEENT: Normocephalic/atraumatic, sclera anicteric, mucous membranes moist Neck: Normal range of motion Chest and Lungs: Bilateral breath sounds, clear to auscultation Cardiovascular: Regular rate and rhythm, no murmur Abdomen: Bilateral lower quadrant tenderness without guarding or rebound Back: Normal Musculoskeletal: No edema or tenderness Neurologic: Awake, alert, no obvious deficits, moving all extremities Psychiatric: Appropriate, cooperative Course - Vital Signs Last Recorded V/S: Last Vital Signs Temp 96.3 F L 06/20/20 13:47 Pulse 75 06/20/20 16:37 Resp 15 06/20/20 16:37 BP 112/60 06/20/20 16:37 Pulse Ox 95 06/20/20 16:37 - Orders/Labs/Meds Orders: Active Orders 24 hr Category Date Time Status Patient Status [ADT] Routine ADT 06/20/20 15:42 Active Lactated Ringers [Ringers, Lactated] 1,000 ml Med 06/20/20 14:30 Active IV ASDIRECTED Sodium Chloride 0.9% [Saline Flush] Med 06/20/20 14:19 Active 10 ml FLUSH ASDIRECTED PRN Sodium Chloride 0.9% [Saline Flush] Med 06/20/20 14:19 Active 2.5 ml FLUSH ASDIRECTED PRN Saline Lock Insert [OM.PC] Stat Oth 06/20/20 14:19 Ordered Medication Orders Lactated Ringer's (Ringers, Lactated) 1,000 mls @ 999 mls/hr IV ASDIRECTED ANTONIETA Last Admin: 06/20/20 14:28 Dose: 999 mls/hr Documented by: VIALMEL Sodium Chloride (Saline Flush) 10 ml FLUSH ASDIRECTED PRN PRN Reason: Keep Vein Open Last Admin: 06/20/20 14:28 Dose: 10 ml Documented by: VIALMEL Sodium Chloride (Saline Flush) 2.5 ml FLUSH ASDIRECTED PRN PRN Reason: Keep Vein Open Last Admin: 06/20/20 14:28 Dose: 2.5 ml Documented by: VIALMEL Labs: Laboratory Tests 06/20/20 06/20/20 06/20/20 Range/Units 13:50 13:50 13:50 WBC 8.43 (4.0-11.0) K/uL RBC 4.60 (4.50-5.90) M/uL Hgb 13.6 (13.0-17.0) g/dL Hct 41.6 (38.0-50.0) % MCV 90.4 (80.0-98.0) fL MCH 29.6 (27.0-32.0) pg MCHC 32.7 (31.0-37.0) g/dL RDW Std Deviation 52.1 (28.0-62.0) fl RDW Coeff of Mery 16 H (11.0-15.0) % Plt Count 212 (150-400) K/uL MPV 10.50 (7.40-12.00) fL Neut % (Auto) 37.4 L (48.0-80.0) % Lymph % (Auto) 54.1 H (16.0-40.0) % [place] % (Auto) 7.1 (0.0-15.0) % Eos % (Auto) 1.3 (0.0-7.0) % Baso % (Auto) 0.1 (0.0-1.5) % Neut # (Auto) 3.2 (1.4-5.7) K/uL Lymph # (Auto) 4.6 H (0.6-2.4) K/uL [place] # (Auto) 0.6 (0.0-0.8) K/uL Eos # (Auto) 0.1 (0.0-0.7) K/uL Baso # (Auto) 0.0 (0.0-0.1) K/uL Nucleated RBC % 0.0 /100WBC Nucleated RBCs # 0 K/uL Lactate 1.2 (0.20-2.00) mmol/L Sodium 135 L (136-148) mmol/L Potassium 4.1 (3.5-5.1) mmol/L Chloride 100 (98-107) mmol/L Carbon Dioxide 28.9 (21.0-32.0) mmol/L BUN 25 H (7.0-18.0) mg/dL Creatinine 1.6 H (0.8-1.3) mg/dL Est Cr Clr Drug Dosing TNP Estimated GFR (MDRD) 43.2 ml/min Glucose 110 H (74-106) mg/dL Calcium 9.9 (8.5-10.1) mg/dL Magnesium 2.0 (1.8-2.4) mg/dL Total Bilirubin 0.4 (0.2-1.0) mg/dL AST 32 (15-37) IU/L ALT 33 (14-63) IU/L Alkaline Phosphatase 84 (46-116) U/L Total Protein 8.9 H (6.4-8.2) g/dL Albumin 3.7 (3.4-5.0) g/dL Globulin 5.2 H (2.6-4.0) g/dL Albumin/Globulin Ratio 0.7 L (0.9-1.6) Lipase 143 (73-393) U/L SARS-CoV-2 RNA (BULMARO) (NEGATIVE) 06/20/20 Range/Units 15:42 WBC (4.0-11.0) K/uL RBC (4.50-5.90) M/uL Hgb (13.0-17.0) g/dL Hct (38.0-50.0) % MCV (80.0-98.0) fL MCH (27.0-32.0) pg MCHC (31.0-37.0) g/dL RDW Std Deviation (28.0-62.0) fl RDW Coeff of Mery (11.0-15.0) % Plt Count (150-400) K/uL MPV (7.40-12.00) fL Neut % (Auto) (48.0-80.0) % Lymph % (Auto) (16.0-40.0) % [place] % (Auto) (0.0-15.0) % Eos % (Auto) (0.0-7.0) % Baso % (Auto) (0.0-1.5) % Neut # (Auto) (1.4-5.7) K/uL Lymph # (Auto) (0.6-2.4) K/uL [place] # (Auto) (0.0-0.8) K/uL Eos # (Auto) (0.0-0.7) K/uL Baso # (Auto) (0.0-0.1) K/uL Nucleated RBC % /100WBC Nucleated RBCs # K/uL Lactate (0.20-2.00) mmol/L Sodium (136-148) mmol/L Potassium (3.5-5.1) mmol/L Chloride (98-107) mmol/L Carbon Dioxide (21.0-32.0) mmol/L BUN (7.0-18.0) mg/dL Creatinine (0.8-1.3) mg/dL Est Cr Clr Drug Dosing Estimated GFR (MDRD) ml/min Glucose (74-106) mg/dL Calcium (8.5-10.1) mg/dL Magnesium (1.8-2.4) mg/dL Total Bilirubin (0.2-1.0) mg/dL AST (15-37) IU/L ALT (14-63) IU/L Alkaline Phosphatase (46-116) U/L Total Protein (6.4-8.2) g/dL Albumin (3.4-5.0) g/dL Globulin (2.6-4.0) g/dL Albumin/Globulin Ratio (0.9-1.6) Lipase (73-393) U/L SARS-CoV-2 RNA (BULMARO) NEGATIVE (NEGATIVE) Meds: Medications Generic Name Dose Route Start Last Admin Trade Name Freq PRN Reason Stop Dose Admin Lactated Ringer's 1,000 mls @ 999 mls/hr 06/20/20 14:30 06/20/20 14:28 Ringers, Lactated IV 999 mls/hr ASDIRECTED ANTONIETA Administration Sodium Chloride 10 ml 06/20/20 14:19 06/20/20 14:28 Saline Flush FLUSH 10 ml ASDIRECTED PRN Administration Keep Vein Open Sodium Chloride 2.5 ml 06/20/20 14:19 06/20/20 14:28 Saline Flush FLUSH 2.5 ml ASDIRECTED PRN Administration Keep Vein Open Discontinued Medications Generic Name Dose Route Start Last Admin Trade Name Freq PRN Reason Stop Dose Admin Ondansetron HCl 4 mg 06/20/20 14:19 06/20/20 14:28 Zofran IVPUSH 06/20/20 14:20 4 mg ONETIME ONE Administration Departure - Departure Time of Disposition: 16:53 Disposition: Refer to Observation Condition: Good Clinical Impression: Acute kidney injury - Discharge Information Sepsis Event Note (ED) - Evaluation Sepsis Screening Result: No Definite Risk - Focused Exam Vital Signs: Vital Signs Temp Pulse Resp BP Pulse Ox 06/20/20 13:47 96.3 F L 86 18 120/66 95 - My Orders Last 24 Hours: My Active Orders 06/20/20 14:19 Sodium Chloride 0.9% [Saline Flush] 10 ml FLUSH ASDIRECTED PRN Sodium Chloride 0.9% [Saline Flush] 2.5 ml FLUSH ASDIRECTED PRN Saline Lock Insert [OM.PC] Stat 06/20/20 14:30 Lactated Ringers [Ringers, Lactated] 1,000 ml IV ASDIRECTED 06/20/20 15:42 Patient Status [ADT] Routine - Assessment/Plan Last 24 Hours: My Active Orders 06/20/20 14:19 Sodium Chloride 0.9% [Saline Flush] 10 ml FLUSH ASDIRECTED PRN Sodium Chloride 0.9% [Saline Flush] 2.5 ml FLUSH ASDIRECTED PRN Saline Lock Insert [OM.PC] Stat 06/20/20 14:30 Lactated Ringers [Ringers, Lactated] 1,000 ml IV ASDIRECTED 06/20/20 15:42 Patient Status [ADT] Routine Assessment:: Nontoxic-appearing 70-year-old male with normal vital signs presenting with abnormal CT yesterday and symptoms that could be consistent with mesenteric ischemia but could also be consistent with diverticulitis, gastroenteritis, immunotherapy related enteritis. On patient's CT angiogram today his bowel is unremarkable there is no inflammation there is no pneumatosis intestinalis. The angiogram component demonstrates widely patent vessels without any suggestion of mesenteric ischemia. Patient's vital signs are normal his symptoms have not worsened over the last 12 hours. Given the reassuring findings will repeat blood work to reassess white blood cell count and lactic acid level as well as general chemistry. Zofran and IV fluid as well and will reassess will attempt to [facility]. 1540: Patient's labs demonstrate mild acute kidney injury. However they are without evidence for ongoing bowel ischemia or other acute severe infective process his white blood cell count is normal his lactic acid is normal. He continues to be quite nauseated and uncomfortable and given the duration of symptoms the worsening kidney function in the last 24 hours and his poor protoplasm at baseline patient was discussed with Dr. Avilez and will admit for observation and hydration. Formal COVID testing here is pending. 1652: COVID is negative, will proceed with admission.
[2020-06-20] MEDS ORDERED: Lactated Ringers 1,000 ML IV SCH (14:30)
[2020-06-20 14:40] LABS: BLOOD UREA NITROGEN,BUN 25 mg/dL (7.0-18.0); CARBON DIOXIDE,CO2 28.9 mmol/L (21.0-32.0); CHLORIDE,CL 100 mmol/L (98-107); GLUCOSE RANDOM 110 mg/dL (74-106); LIPASE 143 U/L (73-393); POTASSIUM,K 4.1 mmol/L (3.5-5.1); SODIUM,NA 135 mmol/L (136-148)
[2020-06-20] MEDS ORDERED: Ondansetron 4 MG/2 ML SDV IVPUSH PRN (18:20)
[2020-06-20] MEDS ORDERED: Sodium Chloride 0.9% 1,000 ML IV SCH (18:30)
--- NOTE | 2020-06-20 23:19 | PCM.HP.2 ---
H&P History of Present Illness - General Date of Service: 06/20/20 Admit Problem/Dx: Admission Diagnosis/Problem Admission Diagnosis/Problem Acute kidney injury - History of Present Illness Initial Comments - Free Text/Narative: 70 yo male with pmh of HTN, CAD, neuropathy who was reports one week history of lower abdominal pain, nausea and vomiting. Patient denied any fevers, diarrhea, or blood in stool. Patient was seen in the ED yesterday with CT abdomen/pelvis with contrast and reported to have some dialed fluid fill bowel loops with pneumatosis. Since patient's symptoms had resolved he was discharge home. Today he had a CT angio of abdomen which was normal. Patient was instructed to report [facility] by [facility]. Patient denies any abdominal pain, nausea or vomiting today. abdominal Pain Score (Numeric/FACES): 3 - Related Data Allergies/Adverse Reactions: Allergies Allergy/AdvReac Type Severity Reaction Status Date / Time bee sting Allergy Airway Uncoded 06/21/20 12:14 Tightness Home Medications: Home Meds Cholecalciferol (Vitamin D3) [Vitamin D3] 2 tab PO DAILY 12/07/18 [History] Cyanocobalamin (Vitamin B-12) [Cyanocobalamin] 100 mg PO DAILY 12/07/18 [History] Meloxicam 15 mg PO DAILY 12/07/18 [History] Metoprolol Succinate [Toprol Xl] 25 mg PO DAILY 12/07/18 [History] Vitamin B Complex [B Complex] 1 tab PO DAILY 12/07/18 [History] buPROPion [Wellbutrin SR] 300 mg PO DAILY 12/07/18 [History] FLUoxetine [PROzac] 30 mg PO DAILY 12/08/18 [History] Ondansetron [Zofran ODT] 4 mg PO Q6H PRN #10 tab.dis 06/19/20 [Rx] Past Medical History HEENT History: Reports: None Cardiovascular History: Reports: Afib, [place], Pacemaker Respiratory History: Reports: None Gastrointestinal History: Reports: None Genitourinary History: Reports: None Musculoskeletal History: Reports: None Neurological History: Reports: Neuropathy, Peripheral, Parkinson's, Other (See Below) Other Neuro History: Lewy Body Disease Psychiatric History: Reports: Dementia, Depression Endocrine/Metabolic History: Reports: None Hematologic History: Reports: None Immunologic History: Reports: None Oncologic (Cancer) History: Reports: None Dermatologic History: Reports: None - Infectious Disease History Infectious Disease History: Reports: Chicken Pox, Influenza - Past Surgical History Head Surgeries/Procedures: Reports: None HEENT Surgical History: Reports: None Cardiovascular Surgical History: Reports: Coronary Artery Bypass, Coronary Artery Stent Respiratory Surgical History: Reports: None GI Surgical History: Reports: Hernia, Abdominal Male Surgical History: Reports: None Endocrine Surgical History: Reports: None Neurological Surgical History: Reports: None Musculoskeletal Surgical History: Reports: Other (See Below) Other Musculoskeletal Surgeries/Procedures:: left knee and hand surgery Oncologic Surgical History: Reports: None Dermatological Surgical History: Reports: None Social & Family History - Family History Family Medical History: Noncontributory - Tobacco Use Smoking Status *Q: Never Smoker Years of Tobacco use: 50 Packs/Tins Daily: 0.5 Second Hand Smoke Exposure: No - Caffeine Use Caffeine Use: Reports: Coffee, Soda - Recreational Drug Use Recreational Drug Use: No H&P Review of Systems - Review of Systems: Review Of Systems: Comprehensive ROS is negative, except as noted in HPI. Exam - Exam Exam: See Below - Vital Signs Vital Signs: Last Vital Signs Temp 36.6 C 06/20/20 19:05 Pulse 75 06/20/20 19:05 Resp 17 06/20/20 19:05 BP 105/78 06/20/20 19:05 Pulse Ox 96 06/20/20 19:05 Weight: 83.461 kg - Exam General: Alert, Oriented HEENT: Mucosa Moist & [place] Neck: Supple Lungs: Clear to Auscultation, Normal Respiratory Effort Cardiovascular: Regular Rate, Regular Rhythm GI/Abdominal Exam: Normal Bowel Sounds, Soft Extremities: Non-Tender, No Pedal Edema Skin: Warm, Dry, Intact Neurological: No: Focal Deficit - Patient Data Lab Results Last 24 hrs: Laboratory Results - last 24 hr 06/20/20 06/20/20 06/20/20 Range/Units 13:50 13:50 13:50 WBC 8.43 (4.0-11.0) K/uL RBC 4.60 (4.50-5.90) M/uL Hgb 13.6 (13.0-17.0) g/dL Hct 41.6 (38.0-50.0) % MCV 90.4 (80.0-98.0) fL MCH 29.6 (27.0-32.0) pg MCHC 32.7 (31.0-37.0) g/dL RDW Std Deviation 52.1 (28.0-62.0) fl RDW Coeff of Mery 16 H (11.0-15.0) % Plt Count 212 (150-400) K/uL MPV 10.50 (7.40-12.00) fL Neut % (Auto) 37.4 L (48.0-80.0) % Lymph % (Auto) 54.1 H (16.0-40.0) % [place] % (Auto) 7.1 (0.0-15.0) % Eos % (Auto) 1.3 (0.0-7.0) % Baso % (Auto) 0.1 (0.0-1.5) % Neut # (Auto) 3.2 (1.4-5.7) K/uL Lymph # (Auto) 4.6 H (0.6-2.4) K/uL [place] # (Auto) 0.6 (0.0-0.8) K/uL Eos # (Auto) 0.1 (0.0-0.7) K/uL Baso # (Auto) 0.0 (0.0-0.1) K/uL Nucleated RBC % 0.0 /100WBC Nucleated RBCs # 0 K/uL Lactate 1.2 (0.20-2.00) mmol/L Sodium 135 L (136-148) mmol/L Potassium 4.1 (3.5-5.1) mmol/L Chloride 100 (98-107) mmol/L Carbon Dioxide 28.9 (21.0-32.0) mmol/L BUN 25 H (7.0-18.0) mg/dL Creatinine 1.6 H (0.8-1.3) mg/dL Est Cr Clr Drug Dosing TNP Estimated GFR (MDRD) 43.2 ml/min Glucose 110 H (74-106) mg/dL Calcium 9.9 (8.5-10.1) mg/dL Magnesium 2.0 (1.8-2.4) mg/dL Total Bilirubin 0.4 (0.2-1.0) mg/dL AST 32 (15-37) IU/L ALT 33 (14-63) IU/L Alkaline Phosphatase 84 (46-116) U/L Total Protein 8.9 H (6.4-8.2) g/dL Albumin 3.7 (3.4-5.0) g/dL Globulin 5.2 H (2.6-4.0) g/dL Albumin/Globulin Ratio 0.7 L (0.9-1.6) Lipase 143 (73-393) U/L SARS-CoV-2 RNA (BULMARO) (NEGATIVE) 06/20/20 Range/Units 15:42 WBC (4.0-11.0) K/uL RBC (4.50-5.90) M/uL Hgb (13.0-17.0) g/dL Hct (38.0-50.0) % MCV (80.0-98.0) fL MCH (27.0-32.0) pg MCHC (31.0-37.0) g/dL RDW Std Deviation (28.0-62.0) fl RDW Coeff of Mery (11.0-15.0) % Plt Count (150-400) K/uL MPV (7.40-12.00) fL Neut % (Auto) (48.0-80.0) % Lymph % (Auto) (16.0-40.0) % [place] % (Auto) (0.0-15.0) % Eos % (Auto) (0.0-7.0) % Baso % (Auto) (0.0-1.5) % Neut # (Auto) (1.4-5.7) K/uL Lymph # (Auto) (0.6-2.4) K/uL [place] # (Auto) (0.0-0.8) K/uL Eos # (Auto) (0.0-0.7) K/uL Baso # (Auto) (0.0-0.1) K/uL Nucleated RBC % /100WBC Nucleated RBCs # K/uL Lactate (0.20-2.00) mmol/L Sodium (136-148) mmol/L Potassium (3.5-5.1) mmol/L Chloride (98-107) mmol/L Carbon Dioxide (21.0-32.0) mmol/L BUN (7.0-18.0) mg/dL Creatinine (0.8-1.3) mg/dL Est Cr Clr Drug Dosing Estimated GFR (MDRD) ml/min Glucose (74-106) mg/dL Calcium (8.5-10.1) mg/dL Magnesium (1.8-2.4) mg/dL Total Bilirubin (0.2-1.0) mg/dL AST (15-37) IU/L ALT (14-63) IU/L Alkaline Phosphatase (46-116) U/L Total Protein (6.4-8.2) g/dL Albumin (3.4-5.0) g/dL Globulin (2.6-4.0) g/dL Albumin/Globulin Ratio (0.9-1.6) Lipase (73-393) U/L SARS-CoV-2 RNA (BULMARO) NEGATIVE (NEGATIVE) Result Diagrams: 06/20/20 13:50 06/21/20 10:20 Sepsis Event Note - Evaluation Sepsis Screening Result: No Definite Risk - Focused Exam Vital Signs: Vital Signs Temp Pulse Resp BP Pulse Ox 06/20/20 19:05 36.6 C 75 17 105/78 96 06/20/20 17:24 75 15 112/66 95 06/20/20 16:37 75 15 112/60 95 06/20/20 16:00 80 15 113/61 95 06/20/20 13:47 35.7 C L 86 18 120/66 95 Problem List Initiated/Reviewed/Updated: Yes Orders Last 24hrs: Active Orders 24 hr Category Date Time Status Patient Status [ADT] Routine ADT 06/20/20 15:42 Active Daily Weight [Height and Weight] [RC] DAILY Care 06/20/20 18:21 Active Influenza Vaccine Charge [RC] .DISCHARGE Care 06/20/20 17:50 Active Intake and Output Strict [RC] Q12H Care 06/20/20 18:21 Active Heart Healthy Diet [DIET] Diet 06/21/20 Breakfast Active Acetaminophen [TylenoL] Med 06/20/20 18:20 Active 650 mg PO Q6H PRN FLU Vacc [id number](65YR UP)/PF [Fluzone High-Dose Quad Med 06/23/20 18:00 Once ] 240 mcg IM .ONCE ONE FLUoxetine Med 06/21/20 09:00 Ordered 30 mg PO DAILY Lactated Ringers [Ringers, Lactated] 1,000 ml Med 06/20/20 14:30 Active IV ASDIRECTED Metoprolol Succinate [Toprol XL] Med 06/21/20 09:00 Ordered 15 mg PO DAILY Ondansetron [Zofran] Med 06/20/20 18:20 Active 4 mg IVPUSH Q4H PRN Pneumococcal 23-Valent Conjug [Pneumovax 23] Med 06/23/20 17:49 Once 25 mcg IM .ONCE ONE Sodium Chloride 0.9% [Normal Saline] 1,000 ml Med 06/20/20 18:30 Active IV ASDIRECTED Sodium Chloride 0.9% [Saline Flush] Med 06/20/20 14:19 Active 10 ml FLUSH ASDIRECTED PRN Sodium Chloride 0.9% [Saline Flush] Med 06/20/20 14:19 Active 2.5 ml FLUSH ASDIRECTED PRN buPROPion [Wellbutrin SR] Med 06/21/20 09:00 Ordered 300 mg PO DAILY Saline Lock Insert [OM.PC] Stat Oth 06/20/20 14:19 Ordered Medication Orders Acetaminophen (Tylenol) 650 mg PO Q6H PRN PRN Reason: Pain Bupropion HCl (Wellbutrin Sr) 300 mg PO DAILY [facility] Lactated Ringer's (Ringers, Lactated) 1,000 mls @ 999 mls/hr IV ASDIRECTED [facility] Last Admin: 06/20/20 14:28 Dose: 999 mls/hr Documented by: VIALMEL Sodium Chloride (Normal Saline) 1,000 mls @ 125 mls/hr IV ASDIRECTED [facility] Last Admin: 06/20/20 18:33 Dose: 125 mls/hr Documented by: [id number] Influenza Virus Vaccine (Fluzone High-Dose Quad 2019-) 240 mcg IM .ONCE ONE Stop: 06/23/20 18:01 Metoprolol Succinate (Toprol Xl) 15 mg PO DAILY [facility] Non-Formulary Medication (Fluoxetine) 30 mg PO DAILY ANTONIETA Ondansetron HCl (Zofran) 4 mg IVPUSH Q4H PRN PRN Reason: Nausea Pneumococcal Polyvalent Vaccine (Pneumovax 23) 25 mcg IM .ONCE ONE Stop: 06/23/20 17:50 Sodium Chloride (Saline Flush) 10 ml FLUSH ASDIRECTED PRN PRN Reason: Keep Vein Open Last Admin: 06/20/20 14:28 Dose: 10 ml Documented by: ALFONSO Sodium Chloride (Saline Flush) 2.5 ml FLUSH ASDIRECTED PRN PRN Reason: Keep Vein Open Last Admin: 06/20/20 14:28 Dose: 2.5 ml Documented by: ALFONSO Assessment/Plan Comment:: 70 yo male admitted for acute kidney injury likely due to dehydration and contrast nephropathy. Patient likely had an episode of enteritis which resolved. We will hydrate with IV fluids overnight and repeat BMP in the morning. Will avoid nephrotoxic medications. Patient was monitored overnight repeat creatinine was 1.4 close to baseline of 1.3. Patient was discharge home [facility].
[2020-06-21] MEDS: Acetaminophen 325 MG Tab PO PRN ×2 (04:10→10:24)
[2020-06-21] MEDS ORDERED: buPROPion 150 MG Tab.SR PO SCH (09:00)
[2020-06-21] MEDS ORDERED: FLU Vacc QV2020-21(65YR UP)/PF 240 MCG/0.7 ML Syringe IM ONE (10:30)
[2020-06-21 10:46] LABS: CARBON DIOXIDE,CO2 28.9 mmol/L (21.0-32.0); POTASSIUM,K 4.3 mmol/L (3.5-5.1)
[2020-06-21] MEDS ORDERED: Metoprolol Succinate 25 MG Tab.ER PO SCH (11:30)
[2020-06-21] MEDS ORDERED: SUMAtriptan 50 MG Tab PO ONE (13:54)
[2020-06-23] MEDS ORDERED: Pneumococcal 23-Valent Conjugate Vaccine 0.5 ML Syringe IM ONE (17:49)
== END 2020-06-21 14:30 | disposition home or self-care (01) ==
LOC: MW.ED 13:43 → MW.MS 15:56
PROVIDERS: ADMIT Internal Medicine; ATTEND Internal Medicine
DX: N17.9 Acute kidney failure, unspecified (principal); I10 Essential (primary) hypertension; I25.10 Atherosclerotic heart disease of native coronary artery without angina pectoris; G62.9 Polyneuropathy, unspecified; I25.2 Old myocardial infarction; I48.91 Unspecified atrial fibrillation; Z95.0 Presence of cardiac pacemaker; Z95.5 Presence of coronary angioplasty implant and graft; Z91.030 Bee allergy status; Z79.899 Other long term (current) drug therapy; Z20.828 Contact with and (suspected) exposure to other viral communicable diseases
CPT/HCPCS: 36415; 80048; 80053; 83605; 83690; 83735; 85025; 87635; 90662; 96361; 96374; 99284; A9270; J2405; J7030; J7120; 99219; G0008; G0378; U0002

== ENCOUNTER 2020-09-28 10:22 | Emergency (ER) | payer OTHER, MEDICARE ==
--- NOTE | 2020-09-28 10:39 | EDM.PDOC ---
ED HPI GENERAL MEDICAL PROBLEM - General Chief Complaint: Skin Complaint Stated Complaint: SHINGLES Time Seen by Provider: 09/28/20 10:24 Source of Information: Reports: Patient History Limitations: Reports: No Limitations - History of Present Illness INITIAL COMMENTS - FREE TEXT/NARRATIVE: HISTORY AND PHYSICAL: History of present illness: Patient is a 70-year-old male who presents to the ED today with concern of pain and a shingles infection. Patient states that he was vaccinated with the shingles a little over a week ago and he began getting a rash on the left side of his neck. Patient states that he saw a provider at the [facility] who prescribed him valacyclovir 1 g 3 times a day. Patient states he has been taking these but the pain of the shingles was significant today that he feels nauseous. Patient states he has been taking Tylenol with minimal relief of his symptoms and has been applying a little bit of hydrocortisone cream to the rash. Patient states that he has not been on any other pain medication or prescribed any other pain medication for the shingles rash. Patient denies any other associated symptoms. Patient denies fever, chills, chest pain, shortness of breath, or cough. Denies headache, neck stiff ness, change in vision, syncope, or near syncope. Denies nausea, vomiting, abdominal pain, diarrhea, constipation, or dysuria. Has not noted any blood in urine or stool. Patient has been eating and drinking appropriately. Review of systems: As per history of present illness and below otherwise all systems reviewed and negative. Past medical history: As per history of present illness and as reviewed below otherwise noncontributory. Surgical history: As per history of present illness and as reviewed below otherwise noncontributory. Social history: See social history for further information Family history: As per history of present illness and as reviewed below otherwise noncontributory. Physical exam: General: Patient is alert, oriented, and in no acute distress. Patient laying on exam table, tired appearing/appears uncomfortable related to rash. HEENT: Visual acuity intact. EOMS intact without pain or difficulty. Fluroscene stain performed without evidence of corneal abrasion/ulceration. Negative for corneal opacity, hyphema, or hypopyon. Atraumatic, normocephalic, pupils equal and reactive bilaterally, negative for conjunctival pallor or scleral icterus, mucous membranes moist, TMs normal bilaterally, throat clear, neck supple, nontender, trachea midline. No drooling or trismus noted. No meningeal signs. No hot potato voice noted. Lungs: Clear to auscultation, breath sounds equal bilaterally, chest nontender. Heart: S1S2, regular rate and rhythm without overt murmur Abdomen: Soft, nondistended, nontender. Negative for masses or hepatosplenomegaly. Negative for costovertebral tenderness. Pelvis: Stable nontender. Genitourinary: Deferred. Rectal: Deferred. Skin: Multiple vesicular, erythematous, maculopapular rash with various stages of ulceration/crusting/scabbing lesions with sharply demarcated to the left sided C3 dermatome pattern/does not cross the midline, does involve the lower aspect of patients face. Does not involve the eye. Painful to palpation. Otherwise, Intact, warm, dry. No lesions or rashes noted. Extremities: Atraumatic, negative for cords or calf pain. Neurovascular unremarkable. Neuro: Awake, alert, oriented. Cranial nerves II through XII unremarkable. Cerebellum unremarkable. Motor and sensory unremarkable throughout. Exam nonfocal. Notes: Signs and symptoms that were prompt return to the ED thoroughly discussed with patient. Discussed importance for follow-up with a primary care provider. Voices understanding and is agreeable to plan of care. Denies any further questi ons or concerns at this time. Diagnostics: Woodslamp/fluorescence stain Therapeutics: Tetracaine ophthalmic Prescription: [place] (#20), Gabapentin Impression: Shingles infection Plan: 1. Take medication as prescribed. You can also use tylenol as directed for pain and discomfort. 2. Otherwise, take the prescribed medication as directed for moderate-severe pain. [place], this medication may cause drowsiness, so do not take it while driving or needing to be functioning outside of the home. CAUTION and use sparingly for severe pain and closely monitor while taking medication as this medication can increase falls as discussed. 3. Follow-up with your primary care provider as discussed. Return to the ED as needed and as discussed. Definitive disposition and diagnosis as appropriate pending reevaluation and review of above. Back of the neck and L shoulder Pain Score (Numeric/FACES): 10 - Related Data Allergies Allergy/AdvReac Type Severity Reaction Status Date / Time bee sting Allergy Airway Uncoded 09/28/20 10:44 Tightness Home Meds: Home Meds Cholecalciferol (Vitamin D3) [Vitamin D3] 2 tab PO DAILY 12/07/18 [History] Cyanocobalamin (Vitamin B-12) [Cyanocobalamin] 100 mg PO DAILY 12/07/18 [History] Meloxicam 15 mg PO DAILY 12/07/18 [History] Metoprolol Succinate [Toprol Xl] 25 mg PO DAILY 12/07/18 [History] Vitamin B Complex [B Complex] 1 tab PO DAILY 12/07/18 [History] buPROPion [Wellbutrin SR] 300 mg PO DAILY 12/07/18 [History] FLUoxetine [PROzac] 30 mg PO DAILY 12/08/18 [History] Ondansetron [Zofran ODT] 4 mg PO Q6H PRN #10 tab.dis 06/19/20 [Rx] Acetaminophen/HYDROcodone [[place] 325-5 MG] 1 tab PO Q6H 5 Days #20 tablet 09/28/20 [Rx] Gabapentin [Neurontin] 300 mg PO TID 14 Days #42 cap 09/28/20 [Rx] Past Medical History HEENT History: Reports: None Cardiovascular History: Reports: Afib, [place], Pacemaker Respiratory History: Reports: None Gastrointestinal History: Reports: None Genitourinary History: Reports: None Musculoskeletal History: Reports: None Neurological History: Reports: Neuropathy, Peripheral, Parkinson's, Other (See Below) Other Neuro History: Lewy Body Disease Psychiatric History: Reports: Dementia, Depression Endocrine/Metabolic History: Reports: None Hematologic History: Reports: None Immunologic History: Reports: None Oncologic (Cancer) History: Reports: None Dermatologic History: Reports: None - Infectious Disease History Infectious Disease History: Reports: Chicken Pox, Influenza - Past Surgical History Head Surgeries/Procedures: Reports: None HEENT Surgical History: Reports: None Cardiovascular Surgical History: Reports: Coronary Artery Bypass, Coronary Artery Stent Respiratory Surgical History: Reports: None GI Surgical History: Reports: Hernia, Abdominal Male Surgical History: Reports: None Endocrine Surgical History: Reports: None Neurological Surgical History: Reports: None Musculoskeletal Surgical History: Reports: Other (See Below) Other Musculoskeletal Surgeries/Procedures:: left knee and hand surgery Oncologic Surgical History: Reports: None Dermatological Surgical History: Reports: None Social & Family History - Family History Family Medical History: No Pertinent Family History - Caffeine Use Caffeine Use: Reports: Coffee, Soda ED ROS GENERAL - Review of Systems Review Of Systems: Comprehensive ROS is negative, except as noted in HPI. ED EXAM, SKIN/RASH Exam: See Below (see dictation) Course - Vital Signs Last Recorded V/S: Last Vital Signs Temp 96.7 F L 09/28/20 10:24 Pulse 87 09/28/20 10:24 Resp 19 09/28/20 10:24 BP 130/80 09/28/20 10:24 Pulse Ox 95 09/28/20 10:24 - Orders/Labs/Meds Meds: Medications Discontinued Medications Generic Name Dose Route Start Last Admin Trade Name Freq PRN Reason Stop Dose Admin Tetracaine HCl 2 ml 09/28/20 10:55 Tetracaine 0.5% Steri-Unit Myriam EYEBOTH 09/28/20 10:56 ASDIRECTED ONE Departure - Departure Time of Disposition: 11:14 Disposition: Home, Self-Care 01 Clinical Impression: Shingles Qualifiers: Herpes zoster complications: without complications Qualified Code(s): B02.9 - Zoster without complications - Discharge Information Prescriptions: Gabapentin [Neurontin] 300 mg PO TID 14 Days #42 cap Acetaminophen/HYDROcodone [[place] 325-5 MG] 1 tab PO Q6H 5 Days #20 tablet Referrals: Robby Martin MD [Primary Care Provider] - Forms: ED Department Discharge Additional Instructions: The following information is given to patients seen in the emergency department who are being discharged to home. This information is to outline your options for follow-up care. We provide all patients seen in our emergency department with a follow-up referral. The need for follow-up, as well as the timing and circumstances, are variable depending upon the specifics of your emergency department visit. If you don't have a primary care physician on staff, we will provide you with a referral. We always advise you to contact your personal physician following an emergency department visit to inform them of the circumstance of the visit and for follow-up with them and/or the need for any referrals to a consulting specialist. The emergency department will also refer you to a specialist when appropriate. This referral assures that you have the opportunity for follow-up care with a specialist. All of these measure are taken in an effort to provide you with optimal care, which includes your follow-up. Under all circumstances we always encourage you to contact your private physician who remains a resource for coordinating your care. When calling for follow-up care, please make the office aware that this follow-up is from your recent emergency room visit. If for any reason you are refused follow-up, please contact the [facility] Emergency Department at and asked to speak to the emergency department charge nurse. [facility] [address] [place] [id number] [facility] [address] [place] [id number] 1. Take medication as prescribed. You can also use tylenol as directed for pain and discomfort. 2. Otherwise, take the prescribed medication as directed for moderate-severe pain. [place], this medication may cause drowsiness, so do not take it while driving or needing to be functioning outside of the home. CAUTION and use sparingly for severe pain and closely monitor while taking medication as this medication can increase falls as discussed. 3. Follow-up with your primary care provider as discussed. Return to the ED as needed and as discussed. Sepsis Event Note (ED) - Focused Exam Vital Signs: Vital Signs Temp Pulse Resp BP Pulse Ox 09/28/20 10:24 96.7 F L 87 19 130/80 95
[2020-09-28] MEDS ORDERED: Tetracaine HCl/PF 0.5% 4 ML Bottle EYEBOTH ONE (10:55)
== END 2020-09-28 11:39 | disposition home or self-care (01) ==
LOC: MW.ED 10:22
DX: B02.9 Zoster without complications (principal); I25.2 Old myocardial infarction; I48.91 Unspecified atrial fibrillation; G62.9 Polyneuropathy, unspecified; G20 Parkinson's disease; Z91.030 Bee allergy status; Z79.899 Other long term (current) drug therapy
CPT/HCPCS: 99282; 99283

== ENCOUNTER 2020-12-29 14:15 | Emergency (ER) | payer MEDICARE, OTHER ==
[2020-12-29] MEDS ORDERED: Sodium Chloride 0.9% 10 ML Syringe FLUSH PRN (14:21)
[2020-12-29] MEDS ORDERED: Sodium Chloride 0.9% 2.5 ML Syringe FLUSH PRN (14:21)
--- NOTE | 2020-12-29 14:26 | EDM.PDOC ---
ED HPI GENERAL MEDICAL PROBLEM - General Stated Complaint: FELL HIT HEAD Time Seen by Provider: 12/29/20 14:20 - History of Present Illness INITIAL COMMENTS - FREE TEXT/NARRATIVE: 70-year-old male with a history of A. fib on blood thinners, hypertension, CAD, dementia is presenting as a trauma alert after fall from standing. I saw the patient immediately upon arrival. Patient states that he was walking in his bilateral legs went numb when he fell. He is unsure if he struck his head. He denies headache or neck pain he denies chest pain or shortness of breath he denies abdominal pain. He does endorse upper back pain. He denies any lower back pain he denies any hip or pelvis pain denies any knee pain or right lower extremity pain he does endorse left ankle pain. Denies upper extremity pain. He denies preceding shortness of breath lightheadedness dizziness syncope near syncope or palpitations either before or after the fall. upper back, left ankle Pain Score (Numeric/FACES): 9 - Related Data Allergies Allergy/AdvReac Type Severity Reaction Status Date / Time bee sting Allergy Airway Uncoded 12/29/20 14:32 Tightness Home Meds: Home Meds Cholecalciferol (Vitamin D3) [Vitamin D3] 2 tab PO DAILY 12/07/18 [History] Cyanocobalamin (Vitamin B-12) [Cyanocobalamin] 100 mg PO DAILY 12/07/18 [History] Meloxicam 15 mg PO DAILY 12/07/18 [History] Metoprolol Succinate [Toprol Xl] 25 mg PO DAILY 12/07/18 [History] Vitamin B Complex [B Complex] 1 tab PO DAILY 12/07/18 [History] buPROPion [Wellbutrin SR] 300 mg PO DAILY 12/07/18 [History] FLUoxetine [PROzac] 30 mg PO DAILY 12/08/18 [History] Ondansetron [Zofran ODT] 4 mg PO Q6H PRN #10 tab.dis 06/19/20 [Rx] Acetaminophen/HYDROcodone [[place] 325-5 MG] 1 tab PO Q6H 5 Days #20 tablet 09/28/20 [Rx] Gabapentin [Neurontin] 300 mg PO TID 14 Days #42 cap 09/28/20 [Rx] Past Medical History HEENT History: Reports: None Cardiovascular History: Reports: Afib, [place], Pacemaker Respiratory History: Reports: None Gastrointestinal History: Reports: None Genitourinary History: Reports: None Musculoskeletal History: Reports: None Neurological History: Reports: Neuropathy, Peripheral, Parkinson's, Other (See Below) Other Neuro History: Lewy Body Disease Psychiatric History: Reports: Dementia, Depression Endocrine/Metabolic History: Reports: None Hematologic History: Reports: None Immunologic History: Reports: None Oncologic (Cancer) History: Reports: None Dermatologic History: Reports: None - Infectious Disease History Infectious Disease History: Reports: Chicken Pox, Influenza - Past Surgical History Head Surgeries/Procedures: Reports: None HEENT Surgical History: Reports: None Cardiovascular Surgical History: Reports: Coronary Artery Bypass, Coronary Artery Stent Respiratory Surgical History: Reports: None GI Surgical History: Reports: Hernia, Abdominal Male Surgical History: Reports: None Endocrine Surgical History: Reports: None Neurological Surgical History: Reports: None Musculoskeletal Surgical History: Reports: Other (See Below) Other Musculoskeletal Surgeries/Procedures:: left knee and hand surgery Oncologic Surgical History: Reports: None Dermatological Surgical History: Reports: None Social & Family History - Family History Family Medical History: No Pertinent Family History - Caffeine Use Caffeine Use: Reports: Coffee ED ROS GENERAL - Review of Systems Review Of Systems: See Below Free Text/Narrative/Comment: General: No fever. Skin: No rash. Eyes: No vision problems. ENT: No sore throat. Neck: No neck stiffness. Respiratory: No shortness of breath. Cardiac: No chest pain. Gastrointestinal: No nausea, vomiting or abdominal pain. Urinary: No dysuria. Musculoskeletal: Per HPI Neurologic: No headache. ED EXAM, GENERAL - Physical Exam Exam: See Below Free Text/Narrative:: General Appearance: No acute distress, appears comfortable Skin: No rash HEENT: Normocephalic/atraumatic, sclera anicteric, mucous membranes moist Neck: Normal range of motion, no midline tenderness and C-spine cleared clinically Chest and Lungs: Bilateral breath sounds, clear to auscultation Cardiovascular: Regular rate and rhythm, no murmur Abdomen: Soft, non-tender Back: Midline tenderness T1-T3 without clear deformity patient will remain in T- spine precautions for now. No flank ecchymosis Musculoskeletal: Bilateral hips nontender pelvis nontender and stable to rock strength is 5 out of 5 in the bilateral hips knees and the right ankle patient does have 4 out of 5 strength in the left ankle with dorsiflexion as well as with eversion that appears to be pain limited. He has 2+ DP and radial pulses bilaterally. He does have significant swelling and tenderness over the lateral malleolus. Neurologic: Awake, alert, no obvious deficits, moving all extremities Psychiatric: Appropriate, cooperative #1 Interpretation EKG Date: 12/29/20 Time: 16:12 EKG Interpretation Comments: Ventricularly paced with a rate of 78 no chenega complexes Course - Vital Signs Last Recorded V/S: Last Vital Signs Temp 96.4 F L 12/29/20 14:20 Pulse 75 12/29/20 15:00 Resp 17 12/29/20 15:00 BP 109/66 12/29/20 15:00 Pulse Ox 94 L 12/29/20 15:00 - Orders/Labs/Meds Orders: Active Orders 24 hr Category Date Time Status EKG Documentation Completion [RC] AM Care 12/29/20 14:21 Active Acetaminophen [TylenoL] Med 12/29/20 16:12 Once 650 mg PO NOW ONE Sodium Chloride 0.9% [Saline Flush] Med 12/29/20 14:21 Active 10 ml FLUSH ASDIRECTED PRN Sodium Chloride 0.9% [Saline Flush] Med 12/29/20 14:21 Active 2.5 ml FLUSH ASDIRECTED PRN DME for Discharge [COMM] Stat Oth 12/29/20 16:04 Ordered DME for Discharge [COMM] Stat Oth 12/29/20 16:05 Ordered Saline Lock Insert [OM.PC] Stat Oth 12/29/20 14:21 Ordered Medication Orders Sodium Chloride (Sodium Chloride 0.9% 10 Ml Syringe) 10 ml FLUSH ASDIRECTED PRN PRN Reason: Keep Vein Open Last Admin: 12/29/20 15:59 Dose: 10 ml Documented by: DONNELL Sodium Chloride (Sodium Chloride 0.9% 2.5 Ml Syringe) 2.5 ml FLUSH ASDIRECTED PRN PRN Reason: Keep Vein Open Last Admin: 12/29/20 15:51 Dose: 2.5 ml Documented by: DONNELL Labs: Laboratory Tests 12/29/20 12/29/20 Range/Units 14:20 14:20 WBC 8.99 (4.0-11.0) K/uL RBC 4.94 (4.50-5.90) M/uL Hgb 14.8 (13.0-17.0) g/dL Hct 42.7 (38.0-50.0) % MCV 86.4 (80.0-98.0) fL MCH 30.0 (27.0-32.0) pg MCHC 34.7 (31.0-37.0) g/dL RDW Std Deviation 46.8 (28.0-62.0) fl RDW Coeff of Mery 15 (11.0-15.0) % Plt Count 212 (150-400) K/uL MPV 10.70 (7.40-12.00) fL Neut % (Auto) 32.9 L (48.0-80.0) % Lymph % (Auto) 55.8 H (16.0-40.0) % Stone % (Auto) 8.1 (0.0-15.0) % Eos % (Auto) 3.0 (0.0-7.0) % Baso % (Auto) 0.2 (0.0-1.5) % Neut # (Auto) 3.0 (1.4-5.7) K/uL Lymph # (Auto) 5.0 H (0.6-2.4) K/uL Stone # (Auto) 0.7 (0.0-0.8) K/uL Eos # (Auto) 0.3 (0.0-0.7) K/uL Baso # (Auto) 0.0 (0.0-0.1) K/uL Nucleated RBC % 0.0 /100WBC Nucleated RBCs # 0 K/uL Sodium 136 (136-148) mmol/L Potassium 4.1 (3.5-5.1) mmol/L Chloride 102 (98-107) mmol/L Carbon Dioxide 24.3 (21.0-32.0) mmol/L BUN 20 H (7.0-18.0) mg/dL Creatinine 1.5 H (0.8-1.3) mg/dL Est Cr Clr Drug Dosing 54.43 mL/min Estimated GFR (MDRD) 46.5 ml/min Glucose 93 (74-106) mg/dL Calcium 9.3 (8.5-10.1) mg/dL Total Bilirubin 0.7 (0.2-1.0) mg/dL AST 21 (15-37) IU/L ALT 28 (14-63) IU/L Alkaline Phosphatase 109 (46-116) U/L Troponin I < 0.050 (0.000-0.056) ng/mL Total Protein 8.5 H (6.4-8.2) g/dL Albumin 3.9 (3.4-5.0) g/dL Globulin 4.6 H (2.6-4.0) g/dL Albumin/Globulin Ratio 0.9 (0.9-1.6) Meds: Medications Generic Name Dose Route Start Last Admin Trade Name Freq PRN Reason Stop Dose Admin Sodium Chloride 10 ml 12/29/20 14:21 12/29/20 15:59 Sodium Chloride 0.9% 10 Ml Syringe FLUSH 10 ml ASDIRECTED PRN Administration Keep Vein Open Sodium Chloride 2.5 ml 12/29/20 14:21 12/29/20 15:51 Sodium Chloride 0.9% 2.5 Ml Syringe FLUSH 2.5 ml ASDIRECTED PRN Administration Keep Vein Open Departure - Departure Time of Disposition: 16:12 Disposition: Home, Self-Care 01 Condition: Good Clinical Impression: Left ankle sprain, Frequent falls - Discharge Information *PRESCRIPTION DRUG MONITORING PROGRAM REVIEWED*: Not Applicable *COPY OF PRESCRIPTION DRUG MONITORING REPORT IN PATIENT KINDRA: Not Applicable Instructions: Ankle Sprain, Elastic Bandage and RICE Therapy Referrals: Anthony Black LEAD ACCOUNTANT [Primary Care Provider] - 1 Week Additional Instructions: Please do not wear the Arcadio wrap at night. You can use the Arcadio wrap in the Aircast brace to help with your left ankle. Please follow-up with your primary care doctor. If you have any new or worsening symptoms please call your doctor right away or return to the ER. The following information is given to patients seen in the emergency department who are being discharged to home. This information is to outline your options for follow-up care. We provide all patients seen in our emergency department with a follow-up referral. The need for follow-up, as well as the timing and circumstances, are variable depending upon the specifics of your emergency department visit. If you don't have a primary care physician on staff, we will provide you with a referral. We always advise you to contact your personal physician following an emergency department visit to inform them of the circumstance of the visit and for follow-up with them and/or the need for any referrals to a consulting specialist. The emergency department will also refer you to a specialist when appropriate. This referral assures that you have the opportunity for follow-up care with a specialist. All of these measure are taken in an effort to provide you with optimal care, which includes your follow-up. Under all circumstances we always encourage you to contact your private physician who remains a resource for coordinating your care. When calling for follow-up care, please make the office aware that this follow-up is from your recent emergency room visit. If for any reason you are refused follow-up, please contact the [facility] Emergency Department at and asked to speak to the emergency department charge nurse. Sepsis Event Note (ED) - Focused Exam Vital Signs: Vital Signs Temp Pulse Resp BP Pulse Ox 12/29/20 15:00 75 17 109/66 94 L 12/29/20 14:20 96.4 F L 96 18 120/74 97 - My Orders Last 24 Hours: My Active Orders 12/29/20 14:21 EKG Documentation Completion [RC] AM Sodium Chloride 0.9% [Saline Flush] 10 ml FLUSH ASDIRECTED PRN Sodium Chloride 0.9% [Saline Flush] 2.5 ml FLUSH ASDIRECTED PRN Saline Lock Insert [OM.PC] Stat 12/29/20 16:04 DME for Discharge [COMM] Stat 12/29/20 16:05 DME for Discharge [COMM] Stat 12/29/20 16:12 Acetaminophen [TylenoL] 650 mg PO NOW ONE - Assessment/Plan Last 24 Hours: My Active Orders 12/29/20 14:21 EKG Documentation Completion [RC] AM Sodium Chloride 0.9% [Saline Flush] 10 ml FLUSH ASDIRECTED PRN Sodium Chloride 0.9% [Saline Flush] 2.5 ml FLUSH ASDIRECTED PRN Saline Lock Insert [OM.PC] Stat 12/29/20 16:04 DME for Discharge [COMM] Stat 12/29/20 16:05 DME for Discharge [COMM] Stat 12/29/20 16:12 Acetaminophen [TylenoL] 650 mg PO NOW ONE Assessment:: 70-year-old male presents as a trauma alert as described. No clear medical symptoms prior to the fall. However is unclear if falls are a problem for him or not. Will attempt to get collateral information from his . I believe you can clinically clear the C and L-spine as well as the abdomen pelvis and extremities with the exception of the left ankle. CT scan of the brain and T- spine has been ordered as well as chest x-ray and left ankle x-ray. Tertiary assessment pending results of above. Patient is hemodynamically stable. EKG CBC CMP and troponin to assess for any signs of infection or primary cardiac process though I think these are unlikely. Syncope or near syncope would certainly be a consideration. We will readdress this. 1605: Patient's imaging is without serious traumatic finding. Patient does have a left ankle sprain. Patient's is at bedside. She states that this happens 2-3 times a week. His labs are normal EKG is pending but this is also without acute finding patient and myself are comfortable with discharge. She brought him in today because he did hit his head which he does not often do with his falls. Patient provided with an Arcadio wrap and Aircast for his left ankle sprain patient will follow up with his primary care provider. Return precaution discussed and understood.
[2020-12-29 15:02] LABS: BLOOD UREA NITROGEN,BUN 20 mg/dL (7.0-18.0); CARBON DIOXIDE,CO2 24.3 mmol/L (21.0-32.0); CHLORIDE,CL 102 mmol/L (98-107); GLUCOSE RANDOM 93 mg/dL (74-106); POTASSIUM,K 4.1 mmol/L (3.5-5.1); SODIUM,NA 136 mmol/L (136-148)
--- NOTE | 2020-12-29 15:24 | CT ---
INDICATION: Trauma. Patient fell COMPARISON: Head CT dated 07/16/2020 TECHNIQUE: A CT volumetric acquisition was performed of the brain without IV contrast. FINDINGS: There is no evidence of a subdural or epidural hematoma. There is no evidence of subarachnoid hemorrhage or intraparenchymal bleeding. The CT images reveal a normal appearance of the cerebral ventricles and basal cisterns. There is no evidence of localized tissue infarction or mass effect. There is normal casey white matter differentiation. The mastoid air cells and middle ear cavities are clear. The calvarium appears intact. There is normal aeration of the visualized paranasal sinuses. IMPRESSION: Negative head CT. Please note that all CT scans at this facility use dose modulation, iterative reconstruction, and/or weight-based dosing when appropriate to reduce radiation dose to as low as reasonably achievable. Dictated by Gilberto Lawrence MD @ Dec 29 2020 3:18PM Signed by Dr. Gilberto Lawrence @ Dec 29 2020 3:22PM
--- NOTE | 2020-12-29 15:26 | CR ---
INDICATION: Trauma. Patient fell COMPARISON: Two view chest dated 06/15/2019 TECHNIQUE: Portable chest performed at 3:04 p.m. FINDINGS: There is no evidence of pneumothorax. The visualized ribs appear intact. There is no evidence of a pleural hematoma her pleural fluid. Heart put vessels are normal in size. The pace left-sided cardiac pacemaker remains in stable position. Patient has undergone cardiac valve replacement and ligation of the left atrial appendage. IMPRESSION: No acute traumatic change identified within the thorax. Dictated by Gilberto Lawrence MD @ Dec 29 2020 3:22PM Signed by Dr. Gilberto Lawrence @ Dec 29 2020 3:24PM
--- NOTE | 2020-12-29 15:51 | CT ---
Indication: Fall, back pain, on blood thinners Technique: Nonenhanced axial CT imaging through the thoracic spine. Sagittal and coronal reconstructions are provided. Comparison: None Findings: There is normal height and alignment of the thoracic vertebral bodies. No fracture is demonstrated. There is no prevertebral edema or paraspinal hematoma. Minimal degenerative changes are present. There is no significant narrowing of the spinal canal and neural foramina. Impression: No acute fracture or traumatic malalignment. Please note that all CT scans at this facility use dose modulation, iterative reconstruction, and/or weight-based dosing when appropriate to reduce radiation dose to as low as reasonably achievable. Dictated by Nasim Tyson MD @ Dec 29 2020 3:38PM Signed by Dr. Nasim Tyson @ Dec 29 2020 3:49PM
--- NOTE | 2020-12-29 15:53 | CR ---
Indication: Fall, left ankle pain Technique: Three views of the left ankle Comparison: None Findings: There is no fracture or joint dislocation. The ankle joint is congruent. Soft tissue edema is noted along the anterior and lateral ankle. Impression: No acute osseous abnormality. Dictated by Nasim Tyson MD @ Dec 29 2020 3:49PM Signed by Dr. Nasim Tyson @ Dec 29 2020 3:51PM
[2020-12-29] MEDS ORDERED: Acetaminophen 325 MG Tab PO ONE (16:12)
== END 2020-12-29 16:43 | disposition home or self-care (01) ==
LOC: MW.ED 14:15
DX: S93.402A Sprain of unspecified ligament of left ankle, initial encounter (principal); I48.91 Unspecified atrial fibrillation; I10 Essential (primary) hypertension; I25.2 Old myocardial infarction; I25.10 Atherosclerotic heart disease of native coronary artery without angina pectoris; G20 Parkinson's disease; F02.80 Dementia in other diseases classified elsewhere, unspecified severity, without behavioral disturbance, psychotic disturbance, mood disturbance, and anxiety; G62.9 Polyneuropathy, unspecified; Z91.14 Patient's other noncompliance with medication regimen; Z91.030 Bee allergy status; Z79.01 Long term (current) use of anticoagulants; Z79.899 Other long term (current) drug therapy; W18.30XA Fall on same level, unspecified, initial encounter
CPT/HCPCS: 36415; 70450; 71045; 72128; 73600; 80053; 84484; 85025; 93005; 99284; A9270; 93010

== ENCOUNTER 2022-09-15 15:57 | Emergency (ER) | payer OTHER | END 2022-09-15 20:39 | disposition left against medical advice (07) | LOC: MW.ED 15:57 | DX: Z53.21 Procedure and treatment not carried out due to patient leaving prior to being seen by health care provider (principal) ==